=== PATIENT | female | born 1950 | race Caucasian/White ===

== ENCOUNTER 2019-10-11 12:29 | Inpatient (IN) | payer OTHER ==
[~2019-10-11] VITALS: Ht 175.3 cm; Wt 77.8 kg
[2019-10-11 13:18] LABS: Base Excess Venous -4.9 mmol/L; Bicarbonate Venous 20.3 mmol/L (24.0-30.0); PCO2 Venous 41.2 mmHg (38-42); pH Blood Venous 7.32 (7.34-7.37)
[2019-10-11] MEDS ORDERED: BUPR150ER PO (13:28)
[2019-10-11] MEDS ORDERED: NICOTINE LOZENGE2 MG MM (13:28)
[2019-10-11] MEDS ORDERED: Vitamin D2000 UNIT PO (13:29)
[2019-10-11] MEDS ORDERED: ATEN50 PO (13:30)
[2019-10-11] MEDS ORDERED: Super B With V1 EACH PO (13:30)
[2019-10-11] MEDS ORDERED: MULTI FOR HER1 EACH PO (13:30)
[2019-10-11] MEDS ORDERED: ESTR2 PO (13:30)
[2019-10-11] MEDS ORDERED: MAGNESIUM CITR100 MG PO (13:30)
[2019-10-11] MEDS ORDERED: Aspirin EC81 MG PO (13:31)
[2019-10-11 13:42] LABS: International Normalized Ratio 1.09; Prothrombin Time Results 11.6 Sec (9.7-11.5)
[2019-10-11 13:49] LABS: Albumin, Blood 1.9 g/dL (3.4-5.0); Albumin/Globulin Ratio 0.6 (0.8-1.8); Bilirubin, Total 0.5 mg/dL (0.1-1.0); Bun/Creatinine Ratio 21.2 (12.0-20.0); Calcium, Blood 8.1 mg/dL (8.5-10.1); Creatinine, Blood 2.03 mg/dL (0.40-1.00); Globulin, Blood 3.2 g/dL (2.2-4.0); Potassium, Blood 4.2 mmol/L (3.5-5.5); Total Protein, Blood 5.1 g/dL (6.4-8.2)
[2019-10-11 13:57] LABS: Source, Urine Catheter
[2019-10-11 14:28] LABS: Appearance, Urine Hazy (Clear); Bilirubin, Urine Neg (Neg); Blood, Urine 1+ (Neg); Color, Urine Yellow (P-Yellow); Glucose Qualitative, Urine Neg (Neg); Ketones, Urine 1+ (Neg); Leukocyte Esterase, Urine Neg (Neg); Nitrite, Urine Neg (Neg); Protein, Urine 3+ (Neg); Urobilinogen, Urine NORM (Normal)
[2019-10-11 14:37] LABS: BASOPHILS ABSOLUTE AUTO 0.02 K/mm3 (0.00-0.23); BASOPHILS PERCENT AUTO 0 % (0-2); EOSINOPHILS ABSOLUTE AUTO 0.01 K/mm3 (0.00-0.68); EOSINOPHILS PERCENT AUTO 0 % (0-6); Hematocrit 37.9 % (33.0-51.0); Hemoglobin 13.2 g/dL (11.5-16.0); IMMATURE GRAN ABSOLUTE AUTO 0.19 K/mm3 (0.00-0.10); IMMATURE GRAN PERCENT AUTO 1 % (0-1); LYMPHOCYTES ABSOLUTE AUTO 0.52 K/mm3 (0.84-5.20); LYMPHOCYTES PERCENT AUTO 4 % (21-46); MONOCYTES ABSOLUTE AUTO 0.97 K/mm3 (0.16-1.47); MONOCYTES PERCENT AUTO 7 % (4-13); Mean Corpuscular HGB 31.4 pg (26.0-34.0); Mean Corpuscular HGB Conc 34.8 g/dL (31.5-36.5); Mean Corpuscular Volume 90 fL (80-100); NEUTROPHILS ABSOLUTE AUTO 12.83 K/mm3 (1.96-9.15); NEUTROPHILS PERCENT AUTO 88 % (41-73); RDW Coefficient Variation 13.7 % (11.7-14.2); RDW Standard Deviation 45.4 fL (35.1-46.3); Red Blood Cell Count 4.21 M/mm3 (3.80-5.20); White Blood Cell Count 14.54 K/mm3 (4.00-11.30)
[2019-10-11 14:53] LABS: Granular Casts 0-2 /lpf (0)
[2019-10-11 14:54] LABS: Bacteria Mod /hpf; Red Blood Cells, Urine 0-2 /hpf (0-2)
[2019-10-11 14:55] LABS: Squamous Epithelial Cells Mod /hpf (Few); Transitional Epithelial Cells Few /hpf (0-Rare)
[2019-10-11 15:02] LABS: U Amphetamine Screen Not Detected; U Barbituate Screen Not Detected; U Benzodiazapine Screen Not Detected; U Buprenorphine Screen Not Detected; U Cannabinoids Screen DETECTED; U Cocaine Screen Not Detected; U Methadone Screen Not Detected; U Methamphetamine Screen Not Detected; U Opiates Screen Not Detected; U Oxycodone Screen Not Detected; U Propoxyphene Screen Not Detected
[2019-10-11 15:04] LABS: Magnesium, Blood 2.4 mg/dL (1.6-2.4)
[2019-10-11 15:08] LABS: Creatine Kinase MB 8.5 ng/mL (0.0-3.6); Creatine Kinase MB Index 1.1 (0.0-4.0); Troponin I 0.219 ng/mL (0.000-0.040)
[2019-10-11 15:40] LABS: Mean Platelet Volume 12.7 fL (9.1-12.4); Platelet Count 162 K/mm3 (150-400)
--- NOTE | 2019-10-11 16:20 | NUR ---
ADMIT NOTE- PT ADMITTED TO ICU FROM ER ON [facility]. INTUBAATED, TUBE SECURE. VENT SETTINGS AC 14 TV 450 PEEP 5 PAP 26. SUCTIONED SCANT CLEAR SECRETIONS. LUNGS COARSE RIGHT UPPER. OGT TO LIS NO DRAINAGE. UO VIA JANG 175 YELLOW URINE. BILATERAL WRIST RESTRAINTS-ATTEMPTS TO PULL ETT. EXPLAINED PLAN OF CARE. PROPOFOL GTT STARTED FOR SEDATION WITH GOOD RELIEF. PT'S AND NIECE HERE-UPDATED. PT ABLE TO FOLLOW DIRECTIONS TO MOVE EXTREMITIES. DR. SOLO AT BEDSIDE. LEVOPHED GTT AT 3.4 MCG/MIN, LR AT 150 CC/HR, CALCIUM IVPB STARTED. LABS DRAWN FROM [facility] LINE-DI.
[2019-10-11 16:32] LABS: PCO2 Arterial 31.1 mmHg (35-45); PO2 Arterial 116 mmHg (80-100); pH Blood Arterial 7.38 (7.35-7.45)
--- NOTE | 2019-10-11 16:50 | NUR ---
RUN OF WIDE COMPLEX RHYTHM, PULSES PALPABLE, BP STABLE. DR. SOLO HERE-LABS ORDERED. SINUS HENNY NOW. LEVOPHED OFF. PT SEDATE, TOLERATING VENT
[2019-10-11 17:14] LABS: Bun/Creatinine Ratio 24.6 (12.0-20.0); Creatinine, Blood 1.67 mg/dL (0.40-1.00); Magnesium, Blood 2.3 mg/dL (1.6-2.4); Phosphorus, Blood 4.8 mg/dL (2.5-4.9); Potassium, Blood 3.4 mmol/L (3.5-5.5)
[2019-10-11 17:51] LABS: Adenovirus Not Detected (NOT DETECT); Bordetella pertussis Not Detected (NOT DETECT); Chlamydophila pneumoniae Not Detected (NOT DETECT); Coronavirus 229E Not Detected (NOT DETECT); Coronavirus HKU1 Not Detected (NOT DETECT); Coronavirus NL63 Not Detected (NOT DETECT); Coronavirus OC43 Not Detected (NOT DETECT); Human Metapneumovirus Not Detected (NOT DETECT); Human Rhinovirus/Enterovirus Detected (NOT DETECT); Influenza A Not Detected (NOT DETECT); Influenza A/2009-H1 Not Detected (NOT DETECT); Influenza A/H1 Not Detected (NOT DETECT); Influenza A/H3 Not Detected (NOT DETECT); Influenza B Not Detected (NOT DETECT); Mycoplasma pneumoniae Not Detected (NOT DETECT); Parainfluenza Virus 1 Not Detected (NOT DETECT); Parainfluenza Virus 2 Not Detected (NOT DETECT); Parainfluenza Virus 3 Not Detected (NOT DETECT); Parainfluenza Virus 4 Not Detected (NOT DETECT); Respiratory Syncytial Virus Not Detected (NOT DETECT)
--- NOTE | 2019-10-11 18:34 | NUR ---
LABS CALLED TO DR. SOOL-ORDERS FOR K REPLACEMENT. RHYTHM SINUS HENNY TO SINUS RHYTHM, MULTIPLE PACS. LIGHTLY SEDATED WITH PROPOFOL AT 35 MCG/KG/MIN. HYPOTENSIVE-RESTARTED LEVOPHED AT 2 MCG/MIN WITH IMPROVEMENT.
--- NOTE | 2019-10-11 19:15 | NUR ---
ASSUME CARE: BEDSISE RECIEVED FROM [facility] OFF GOING RN. MONITOR INTACT SHOWING SINUS RHYTHM/BIGENEBY/ACC JUNCIONAL. HEART RATE 60'S-70'S. REMAINS INTUBATED SEDATED AND RESTRAINED. VENT SETTINGS AC 12, TV,400, FIO2 35%, PEEP 5, RATE 16-18/MIN SPO2 95-100% . LUNG SOUNDS CLEAR/COARSE UPPER LOBES WITH DECREASED SOUNDS IN THE BASES. ABDOMEN SOFT WITH BOWEL SOUNDS FOUR QUADS. JANG PATENT DRAINING CARLA CLOUDY URINE. 2-3+ GENEREALIZED DEPENDENT EDENA ESPECIALLY UPPER EXTREMITIES/HANDS PAS TO LOWER EXTREMITIES AND ALL EXTREMITIES ELEVATED ON PILLOWS. REMAINS IN SOFT WRIST RESTRAINTS TO PREVENT INADVERTENT REMOVAL OF LINES AND TUBES. CALL TO SPOUSE TO GAIN FURTHER INFORMATION /PAST MEDICAL HX. CONTINUE TO MONITOR AND REPORT CHANGE IN PATIENT CONDITION.
[2019-10-11 22:42] LABS: Troponin I 0.21 ng/mL (0.000-0.040)
[2019-10-11 22:49] LABS: Creatine Kinase MB 7.7 ng/mL (0.0-3.6); Creatine Kinase MB Index 1.5 (0.0-4.0)
[2019-10-12 05:02] LABS: BASOPHILS ABSOLUTE AUTO 0.05 K/mm3 (0.00-0.23); BASOPHILS PERCENT AUTO 0 % (0-2); EOSINOPHILS ABSOLUTE AUTO 0.03 K/mm3 (0.00-0.68); EOSINOPHILS PERCENT AUTO 0 % (0-6); Hematocrit 40.4 % (33.0-51.0); Hemoglobin 14.2 g/dL (11.5-16.0); IMMATURE GRAN ABSOLUTE AUTO 0.22 K/mm3 (0.00-0.10); IMMATURE GRAN PERCENT AUTO 1 % (0-1); LYMPHOCYTES ABSOLUTE AUTO 0.98 K/mm3 (0.84-5.20); LYMPHOCYTES PERCENT AUTO 5 % (21-46); MONOCYTES ABSOLUTE AUTO 1.21 K/mm3 (0.16-1.47); MONOCYTES PERCENT AUTO 7 % (4-13); Mean Corpuscular HGB 31.3 pg (26.0-34.0); Mean Corpuscular HGB Conc 35.1 g/dL (31.5-36.5); Mean Corpuscular Volume 89 fL (80-100); Mean Platelet Volume 11.7 fL (9.1-12.4); NEUTROPHILS ABSOLUTE AUTO 15.57 K/mm3 (1.96-9.15); NEUTROPHILS PERCENT AUTO 86 % (41-73); Platelet Count 247 K/mm3 (150-400); RDW Coefficient Variation 13.9 % (11.7-14.2); RDW Standard Deviation 45.2 fL (35.1-46.3); Red Blood Cell Count 4.54 M/mm3 (3.80-5.20); White Blood Cell Count 18.06 K/mm3 (4.00-11.30)
[2019-10-12 05:23] LABS: Albumin, Blood 2.1 g/dL (3.4-5.0); Albumin/Globulin Ratio 0.7 (0.8-1.8); Bilirubin, Total 0.3 mg/dL (0.1-1.0); Bun/Creatinine Ratio 27.9 (12.0-20.0); Calcium, Blood 9.1 mg/dL (8.5-10.1); Creatine Kinase MB 5.3 ng/mL (0.0-3.6); Creatine Kinase MB Index 2.2 (0.0-4.0); Creatinine, Blood 1.65 mg/dL (0.40-1.00); Magnesium, Blood 2.3 mg/dL (1.6-2.4); Phosphorus, Blood 4.2 mg/dL (2.5-4.9); Potassium, Blood 3.3 mmol/L (3.5-5.5); Total Protein, Blood 5.1 g/dL (6.4-8.2); Troponin I 0.153 ng/mL (0.000-0.040)
[2019-10-12 05:24] LABS: PO2 Arterial 71.8 mmHg (80-100); pH Blood Arterial 7.46 (7.35-7.45)
[2019-10-12 05:25] LABS: Free Thyroxine 1.11 ng/dL (0.70-1.60); Thyroid Stimulating Hormone 0.93 uIU/mL (0.360-4.800)
--- NOTE | 2019-10-12 06:14 | NUR ---
SHFIT SUMMARY REMAINS ON VENT. SETTINGS AC 12, TV 400, FIO2 25% PEEP 5, RATE 16-18/MIN SPO2 97-100% LUNG SOUNDS CLEAR UPPER LOBES WITH DECREASED COARSE BASES. SCANT AMT WHITE SECRETIONS SX WITH ORAL CARE. OG TO LIS.PATENT WITH SCANT RETURM. ABDOMEN SOFT WITH BOWEL SOUNDS FOUR QUADS. TEMP PROBE JANG PATENT DRAINING CLOUDY URINE. GENERALIZED DEPENDENT EDEMA NOTED ESPECIALLY TO EXTREMITIES. ALL EXTREMITIES ELEVATED ON PILLOWS. SEDATION OFF FOR WEAN . TOLERATED WELL COMMUNICATED WITH WRITTEN NOTES, APPROPRIATELY . REMAINS IN SOFT WRIST RESTRAINTS TO PREVENT INADVERTENT REMOVAL OF LINES TUBES. CONTINUE TO MONITOR AND REPORT CHANGE IN PATIENT CONDITION.
--- NOTE | 2019-10-12 07:27 | NUR ---
BEDSIDE REPORT TAKEN AT 0700. PT SEDATED ON PROPOFOL AT 35MCG FOR MECH VENT. LEVOPHED AT 2MCG, BP STABLE; LEVOPHED PLACED ON STANDBY.
--- NOTE | 2019-10-12 07:50 | NUR ---
PT ABLE TO FOLLOW DIRECTIONS, NODS HEAD NO TO PAIN. TEMP UP 101.1; BLANKETS REMOVED, WILL GIVE TYLENOL. PT WENT INTO SVT RATE 160'2 FOR LESS THAN 1MIN THEN CONVERTED BACK TO SINUS TO SINUS TACH 90-110.
--- NOTE | 2019-10-12 07:58 | NUR ---
DR SOLO AT BEDSIDE. POSSIBLE EXTUBATION THIS AM.
--- NOTE | 2019-10-12 08:36 | NUR ---
PT EXTUBATED AT 0830. RESTRAINTS REMOVED AT THIS TIME. PT AWAKE, ALERT, AND ORIENTED. PT'S CALLED AND UPDATED PER PT REQUEST. PT PLACED ON 2L O2 VIA N/C. SATS 97%.
--- NOTE | 2019-10-12 08:53 | NUR ---
PT EXTUBATED WITHOUT ISSUE, PT SX ORALLY AND ETT PRIOR TO EXTUBATION, SAMPLE COLLECTED AND SENT TO LAB. TUBE PULLED AT 0830 AND PT PLACED ON 2L POST EXTUBATION. NO DISTRESS NOTED AT THIS TIME WILL CONTINUE TO MONITOR.
--- NOTE | 2019-10-12 11:24 | NUR ---
PT OOB TO CHAIR, SBA. PT WEAK BUT ABLE TO BEAR WEIGHT. PT C/O ACHE/PAIN TO R HIP, R SHOULDER, R UPPER BACK, R NECK. TYLENOL GIVEN FOR TEMP 101.1 WHICH IS DOWN TO 100.8 NOW. RESP EVEN UNLABORED, SATS 97%+ ON RA. PT TOLERATED ICE WATER, ABLE TO TAKE AM MEDS.
--- NOTE | 2019-10-12 14:18 | NUR ---
PT CONVERTED FROM SINUS TACH TO AFIB RVR RATE 150-190'S. BP STABLE. PT ASYMPTOMATIC. PT FIRST ASKED TO PREFORM VALSALVA MANEUVER WHICH DECREASED HEART RATE TO 150'S FOR MAYBE 5SEC. DR SOLO CALLED. AFIB RVR APPEARED REGULAR LIKE A SVT; EKG COMPLETED WHICH SHOWED AFIB RVR. LOPRESSOR 5MG AT 2.5MG INCREMENTS ORDERED. 2.5MG GIVEN ONLY CARDIOLOGY CONSULT WAS ORDERED AND DR DIXON WAS CONSIDERING CARIOVERSION W ADENOSINE. CRASH CART AT BEDSIDE, PADS ATTATCHED. BP SLIGHTLY LOW AFTER 2.5MG OF LOPRESSOR. NEW ORDERS FROM DR DIXON TO START HEPARIN GTT, AMIO GTT FOLLOWED BY ESMOLOL GTT IF NEEDED.
--- NOTE | 2019-10-12 15:16 | NUR ---
DR. ELIAS UPDATED. PT. TO REMAIN IN ICU
--- NOTE | 2019-10-12 15:29 | NUR ---
Echocardiogram completed.
--- NOTE | 2019-10-12 17:56 | NUR ---
AMIODARONE BOLUS FOLLOWED BY GTT STARTED AT 1430. HEPARIN GTT STARTED PER PHARMACY ORDERS AT 1530 AT 15UNITS/KG/HR ALONG WITH A 6,000 IV BOLUS. ESMOLOL STARTED AT 1530 D/T PERSISTENT AFIB W RVR RATE 150-170. BP LABILE AND AT TIMES SLIGHTLY HYPOTENSIVE W MAP REMAINING >65. ESMOLOL STARTED AT 25MCG/KG/MIN. DR DIXON IN TO CHECK ON PATIENT AT 1630; ESMOLOL INCREASED TO 50MCG AT THIS TIME PER DR DIXON. PT HAS HAD C/O PAIN T/O SHIFT. ON FIRST ASSESSMENT SHE DENIED C/O PAIN, BUT SOON AFTER C/O PAIN TO RIGHT NECK, SHOULDER, HIP D/T FALL AT HOME. PT DENIES CHRONIC PAIN, YET STATES SHE TAKES NSAIDS AND CANNABIS Q NIGHT TO HELP HER SLEEP. PT ALSO HAD ANXIETY T/O SHIFT THAT APPEARED TO BE WORSE THE SHIFT PROGRESSED. PT ASKED FOR SOMETHING IV TO "JUST LET ME SLEEP THROUGH THIS". PT VERY RESTLESS IN BED AND UNABLE TO GET COMFORTABLE. PT PANICKED AT TIMES. PT GIVEN ASA, ADVIL, TYLENOL, AND FENT 25MCG X1 FOR DISCOMFORT W/O ANY IMPROVEMENT. DR SOLO CALLED AT 1645 FOR C/O PAIN AND ANXIETY. DR SOLO ALSO GIVEN FULL UPDATE. FENT AND ATIVAN IV ORDERED PRN. PT GIVEN 0.5MG ATIVAN IV AT 1652 WITH GREAT EFFECT. PT CALM BUT AWAKE AND STATED THAT HER PAIN WAS IMPROVED. PT COVERTED FROM AFIB RVR TO SINUS RHYTHM 2MINS AFTER ATIVAN GIVEN. DR SOLO AND DR DIXON NOTIFIED VIA PHONE. POST CONVERTED EKG OBTAINED PER DR CABA. ESMOLOL TITRATED OFF PER DR DIXON AT 1745. FENT 50MCG GIVEN FOR PAIN AT 1720 WITH GOOD EFFECT. PT WENT IN BRIEF ACCELERATED JUNCTIONAL RHYTHM W WIDE QRS COMPLEX AT 1757, THEN CONVERTED BACK TO SINUS.
--- NOTE | 2019-10-12 19:09 | NUR ---
Initial spiritual care note: Met with Mrs. Coleman and her spouse at bedside. Linda couple who appear to enjoy eachother. Non-holiness, but both were open to encouragement. Jasmina told me about her life, and she and spouse laugh easily at little jokes. They are hopeful Jasmina is recovering. She admits she "waited too long" before seeking medical treatment and promises not to do this again. No concerns presented. They asked that I continue to visit.
--- NOTE | 2019-10-12 20:07 | NUR ---
ASSUMED CARE AT 1900. BEDSIDE REPORT TAKEN FROM OFFGOING MARCUS BLACK. I-TRACE PERFORMED, GTT RATES AND ORDERS VERIFIED. RATES/GTTS DOCUMENTED ON FLOWSHEET. PT ALERT AND ORIENTED, BUT FORGETFUL. PT VACCILATES BETWEEN CALM AND ANXIOUS. PT ABLE TO STATE WHERE AND WHEN SHE IS, BUT ALSO STATES SHE "WAS THE FIRST WOMAN IN HISTORY TO GIVE WITHOUT ANESTHETIC". PAIN CONTROL AND MEDICATION PLAN DISCUSSED WITH PT, AND SHE IS AGREEABLE.
[2019-10-13 04:12] LABS: BASOPHILS ABSOLUTE AUTO 0.02 K/mm3 (0.00-0.23); BASOPHILS PERCENT AUTO 0 % (0-2); EOSINOPHILS ABSOLUTE AUTO 0.25 K/mm3 (0.00-0.68); EOSINOPHILS PERCENT AUTO 2 % (0-6); Hematocrit 32.7 % (33.0-51.0); Hemoglobin 11.2 g/dL (11.5-16.0); IMMATURE GRAN PERCENT AUTO 2 % (0-1); LYMPHOCYTES ABSOLUTE AUTO 0.74 K/mm3 (0.84-5.20); LYMPHOCYTES PERCENT AUTO 6 % (21-46); MONOCYTES ABSOLUTE AUTO 0.59 K/mm3 (0.16-1.47); MONOCYTES PERCENT AUTO 5 % (4-13); Mean Corpuscular HGB Conc 34.3 g/dL (31.5-36.5); Mean Corpuscular Volume 91 fL (80-100); Mean Platelet Volume 11.5 fL (9.1-12.4); NEUTROPHILS ABSOLUTE AUTO 9.79 K/mm3 (1.96-9.15); NEUTROPHILS PERCENT AUTO 84 % (41-73); Platelet Count 215 K/mm3 (150-400); RDW Coefficient Variation 14.1 % (11.7-14.2); RDW Standard Deviation 46.7 fL (35.1-46.3); Red Blood Cell Count 3.61 M/mm3 (3.80-5.20); White Blood Cell Count 11.59 K/mm3 (4.00-11.30)
[2019-10-13 04:28] LABS: Anion Gap 5 mmol/L (6-16); Blood Urea Nitrogen 23 mg/dL (8-24); Bun/Creatinine Ratio 26.1 (12.0-20.0); CO2, Blood 26 mmol/L (21-32); Calcium, Blood 8.1 mg/dL (8.5-10.1); Chloride, Blood 108 mmol/L (98-108); Creatinine, Blood 0.88 mg/dL (0.40-1.00); Glomerular Filtration Rate >60 (60-); Glucose, Blood 99 mg/dL (70-99); Phosphorus, Blood 1.6 mg/dL (2.5-4.9); Potassium, Blood 2.8 mmol/L (3.5-5.5); Sodium, Blood 139 mmol/L (136-145)
--- NOTE | 2019-10-13 05:24 | NUR ---
PT WAS RESTLESS MOST OF THE NIGHT, WITH PAIN AND ANXIETY. FENTANYL GIVEN TO GOOD EFFECT, ATIVAN GIVEN WHEN FENTANYL WORE OFF. PT NOW SLEEPING SOUNDLY, AROUSABLE TO TOUCH. PT STATES HAPPY TO FINALLY GET SOME SLEEP. PT HAS NOT HAD BOWEL MOVEMENT, BUT IS PASSING FLATUS WHILE ON BEDPAN. PT HEART RHYTHM WAS VARIABLE WHILE AWAKE, WITH SHORT RUNS OF IRREGULAR, JUNCTIONAL, AND VTAC. WENT TO [facility] ONCE SHE FELL ASLEEP.
--- NOTE | 2019-10-13 07:47 | NUR ---
BEDSIDE REPORT TAKEN AT 0700. PT SLEEPING IN BED, AROUSES TO VOICE. HEPARIN GTT AT 13UNITS/KG/HR. AMIO GTT AT 0.5MG/MIN, LR AT 150CC/HR.
--- NOTE | 2019-10-13 10:37 | NUR ---
DR DIXON AND DR SOLO AT BEDSIDE THIS AM TO SEE PT. PT GIVEN PO AMIODARONE WITH ORDERS TO DC GTT ONE HOUR AFTER PO AMIO GIVEN. HEPARIN GTT WILL CONT UNTIL 1700 AND WILL BE REPLACED BY XARELTO. HEPARIN INCREASED TO 14UNITS PER PHARMACY AT 1023. JANG CATH DC'D W/O DIFFICULTY AT 1023. CENTRAL LINE TO BE DC'D AFTER PERIPHERAL IV STARTED. PT UP TO COMMODE, NO BM, BUT PT PASSED A LOT OF FLATUS; PT STATES SHE FEELS BETTER.
--- NOTE | 2019-10-13 12:49 | NUR ---
CENTRAL LINE DC'D PER POLICY AND PROTOCOL AFTER 2 PERIPHERAL IV'S PLACED. JANG DC'D W/O DIFF. PT SBA W GAIT BELT TO COMMODE, CLEAR URINE OUTPUT. OOB TO CHAIR FOR LUNCH. REPORT GIVEN TO JAIV BLACK ON 3RD FLOOR.
--- NOTE | 2019-10-13 14:43 | NUR ---
[facility], a+o, transfered with two person assist, came down with no IV pump, started heparin josesito, all three iv sites flushed but one on the R ac acluded easily, started other iv medications as ports came available, pt stated she was cold so provided 3 warm blankets and turned up temp in room and closed door, bp high, gave schduled bp medication, waited 30 min bp more within acceptable range, less cold but still mind wandering still aware of where she is at and if asked why but not so sure it is a good idea she stay dispite the fact she has no way of going home or anyone there capable of caring for her, family in to visit, call light in reach, alarm on bed due to desire to leave, bed in low position, medications infusing. will continue to monitor and treat until share bsr with shift engineer
--- NOTE | 2019-10-13 18:39 | NUR ---
alert but confused, states she was showing signs of confusion prior to hospitalization, he states he feels she is unsafe to retun to their current living situation (motor home), trouble with iv's all 3 started in icu infiltrated and difficult start required multiple attempts by highly skilled nurses, currently infusing with no s/sx of infiltration or infection, heparin dc at 1700, xerolto started po. used bsc 2 times, 2 person with gatebelt to transfer due to need to assist and move cables/hoses around, believes she can do it herself, call light in reach, ls clear, declined all meals but complaind she was hungary but did not want anything from the kitchen only wanted to go home and make her own, currently resting quietly with 50mg of fentenyl on board, enjoyed visit with dog, still no bm, denied any urge or abdmn pain, will continue to monitor and treat until share bsr with the wonderful and talent alena rn
--- NOTE | 2019-10-14 05:20 | NUR ---
AOC OPERATIONS INTELLIGENCE OFFICER SUMMARY NO ACUTE CHANGES THIS SHIFT. PT AAOX2-3, HAS MOMENTS OF CLARITY BUT IS OFTEN CONFUSED AND FORGETFUL. REQUIRES REORIENTATION OFTEN. PT UP TO THE BSC TO VOID NUMEROUS TIMES TONIGHT AFTER SUHAIL WAS DC'D DURING DAY SHIFT. CONTINUED ON LR'S AT 150 ML/HR. PT VERY EAGER TO GO HOME TO SEE HER AND DOG. BED ALARM ON FOR SAFETY DUE TO PT'S IMPULSIVENESS. PT DOES NOT CALL FOR ASSISTANCE BEFORE ATTEMPTING TO GET UP. WILL CONTINUE TO MONITOR.
[2019-10-14 05:39] LABS: BASOPHILS ABSOLUTE AUTO 0.03 K/mm3 (0.00-0.23); BASOPHILS PERCENT AUTO 0 % (0-2); EOSINOPHILS ABSOLUTE AUTO 0.14 K/mm3 (0.00-0.68); EOSINOPHILS PERCENT AUTO 1 % (0-6); Hematocrit 33.3 % (33.0-51.0); Hemoglobin 11.5 g/dL (11.5-16.0); IMMATURE GRAN ABSOLUTE AUTO 0.27 K/mm3 (0.00-0.10); IMMATURE GRAN PERCENT AUTO 2 % (0-1); LYMPHOCYTES ABSOLUTE AUTO 0.88 K/mm3 (0.84-5.20); LYMPHOCYTES PERCENT AUTO 7 % (21-46); MONOCYTES PERCENT AUTO 6 % (4-13); Mean Corpuscular HGB 31.1 pg (26.0-34.0); Mean Corpuscular HGB Conc 34.5 g/dL (31.5-36.5); Mean Corpuscular Volume 90 fL (80-100); Mean Platelet Volume 11.4 fL (9.1-12.4); NEUTROPHILS ABSOLUTE AUTO 9.98 K/mm3 (1.96-9.15); NEUTROPHILS PERCENT AUTO 83 % (41-73); Platelet Count 269 K/mm3 (150-400); RDW Standard Deviation 46.3 fL (35.1-46.3)
[2019-10-14 06:07] LABS: Alanine Aminotransfer (ALT/SGP 64 U/L (12-78); Albumin, Blood 2.1 g/dL (3.4-5.0); Albumin/Globulin Ratio 0.7 (0.8-1.8); Alk Phos 50 U/L (50-136); Anion Gap 9 mmol/L (6-16); Aspartate Aminotrans (AST/SGOT 54 U/L (12-37); Bilirubin, Total 0.4 mg/dL (0.1-1.0); Blood Urea Nitrogen 8 mg/dL (8-24); Bun/Creatinine Ratio 12.7 (12.0-20.0); CO2, Blood 25 mmol/L (21-32); Calcium, Blood 8.4 mg/dL (8.5-10.1); Chloride, Blood 105 mmol/L (98-108); Creatinine, Blood 0.63 mg/dL (0.40-1.00); Globulin, Blood 3.1 g/dL (2.2-4.0); Glomerular Filtration Rate >60 (60-); Glucose, Blood 92 mg/dL (70-99); Magnesium, Blood 1.9 mg/dL (1.6-2.4); Phosphorus, Blood 1.6 mg/dL (2.5-4.9); Potassium, Blood 2.7 mmol/L (3.5-5.5); Sodium, Blood 139 mmol/L (136-145); Total Protein, Blood 5.2 g/dL (6.4-8.2)
--- NOTE | 2019-10-14 09:12 | NUR ---
A+O, MORE WITHIT THAN YESTERDAY, TOOK MEDICATION WELL, REFUSED ADELE PATCH, 4 DAYS SINCE SMOKED, CALL LIGHT IN REACH, REMOVED DRESSING TO NECK SKIN LOOKES GOOD, IV STILL PROFUSING WELL INTO L AC 20G, SOFT NONTENDER BT+4Q, WEAK ALL FOUR LIMBS STRONG PULSE, GOOD PROFUSION, GETTING TIRED ASSESSMENT PROCEEDS, ADJUSTED BED TO SPECIFICATIONS, PERRL, WILL CONTINUE TO MONITOR AND TREAT APPROPRIATE, NSR AT 71 PER PMT
[2019-10-14] MEDS ORDERED: METO25 PO (16:33)
[2019-10-14] MEDS ORDERED: ACET325 PO (16:34)
[2019-10-14] MEDS ORDERED: ALBU90OI INH (16:36)
[2019-10-14] MEDS ORDERED: Amiodarone HCl200 MG PO (16:36)
[2019-10-14] MEDS ORDERED: Aspir 8181 MG PO (16:37)
[2019-10-14] MEDS ORDERED: AZITHROMYCIN500 M1 PO (16:39)
[2019-10-14] MEDS ORDERED: BISA10S PR (16:41)
[2019-10-14] MEDS ORDERED: BUPR150ER PO (16:42)
[2019-10-14] MEDS ORDERED: CEFD300 PO (16:43)
[2019-10-14] MEDS ORDERED: LORA.5 PO (16:44)
[2019-10-14] MEDS ORDERED: NICO21TP TOP (16:45)
[2019-10-14] MEDS ORDERED: ONDA4ODT MM (16:46)
[2019-10-14] MEDS ORDERED: PANT20 PO (16:47)
[2019-10-14] MEDS ORDERED: XARELTO20 M1 PO (16:49)
[2019-10-14] MEDS ORDERED: Florastor250 MG PO (16:50)
== END 2019-10-14 17:56 | disposition home health service (06) | DRG 871 ==
LOC: ER 12:29 → ICUW 15:04 → MEDS 10-13 13:14
PROVIDERS: Emergency Medicine; Internal Medicine Critical Care Medicine; ADMIT Family Medicine
PROC: 0BH17EZ Insertion of Endotracheal Airway into Trachea, Via Natural or Artificial Opening (ICD-10-PCS; principal; 2019-10-11)
PROC: 5A2204Z Restoration of Cardiac Rhythm, Single (ICD-10-PCS; 2019-10-11)
PROC: 05HM33Z Insertion of Infusion Device into Right Internal Jugular Vein, Percutaneous Approach (ICD-10-PCS; 2019-10-11)
PROC: 5A1935Z Respiratory Ventilation, Less than 24 Consecutive Hours (ICD-10-PCS; 2019-10-11)
DX: A41.9 Sepsis, unspecified organism (principal); R65.21 Severe sepsis with septic shock; G93.41 Metabolic encephalopathy; J18.9 Pneumonia, unspecified organism; J96.01 Acute respiratory failure with hypoxia; N17.9 Acute kidney failure, unspecified; I12.9 Hypertensive chronic kidney disease with stage 1 through stage 4 chronic kidney disease, or unspecified chronic kidney disease; N18.3 Chronic kidney disease, stage 3 (moderate); I48.0 Paroxysmal atrial fibrillation; F12.10 Cannabis abuse, uncomplicated; F17.210 Nicotine dependence, cigarettes, uncomplicated
CPT/HCPCS: 0099U; 31500; 31720; 36415; 36556; 36600; 51702; 70450; 71045; 80048; 80053; 81001; 82330; 82550; 82553; 82803; 83605; 83735; 84100; 84145; 84439; 84443; 84484; 85025; 85610; 85730; 87040; 87070; 87086; 87205; 92960; 93005; 93010; 93306; 94002; 94003; 94640; 94761; 96361-59; 96365-59; 96366-59; 96368; 96375-59; 97110; 97161; 99291-25; 99292; A9270; A9270-GY; C1751; C9113; J0153; J0282; J0330; J0456; J0696; J1644; J1650; J2060; J2250; J2704; J3010; J3480; J7030; J7050; J7060; J7120

== ENCOUNTER → 2021-11-18 | Outpatient (CLI) | payer OTHER ==
[~2021-11-18] MED LIST: ACET325 PO; ALBU90OI INH; ATEN50 PO; AZITHROMYCIN500 M1 PO; Amiodarone HCl200 MG PO; Aspir 8181 MG PO; Aspirin EC81 MG PO; BISA10S PR; BUPR150ER PO; CEFD300 PO; ESTR2 PO; Florastor250 MG PO; LORA.5 PO; MAGNESIUM CITR100 MG PO; METO25 PO; MULTI FOR HER1 EACH PO; NICO21TP TOP; NICOTINE LOZENGE2 MG MM; ONDA4ODT MM; PANT20 PO; Super B With V1 EACH PO; Vitamin D2000 UNIT PO; XARELTO20 M1 PO
== END ==
LOC: LAB SHORT 07:48 → LAB 07:48 → PLD 07:48
DX: B35.1 Tinea unguium (principal); B35.3 Tinea pedis; L60.2 Onychogryphosis
CPT/HCPCS: 88305; 88312

== ENCOUNTER 2022-10-08 16:50 | Inpatient (IN) | payer OTHER ==
[~2022-10-08] VITALS: Ht 177.8 cm; Wt 74.8 kg
[2022-10-08 17:47] LABS: BASOPHILS ABSOLUTE AUTO 0.05 K/mm3 (0.00-0.23); BASOPHILS PERCENT AUTO 0 % (0-2); EOSINOPHILS ABSOLUTE AUTO 0.09 K/mm3 (0.00-0.68); EOSINOPHILS PERCENT AUTO 1 % (0-6); Hematocrit 46.3 % (33.0-51.0); Hemoglobin 15.9 g/dL (11.5-16.0); IMMATURE GRAN ABSOLUTE AUTO 0.09 K/mm3 (0.00-0.10); IMMATURE GRAN PERCENT AUTO 1 % (0-1); LYMPHOCYTES ABSOLUTE AUTO 1.03 K/mm3 (0.84-5.20); LYMPHOCYTES PERCENT AUTO 8 % (21-46); MONOCYTES ABSOLUTE AUTO 0.68 K/mm3 (0.16-1.47); MONOCYTES PERCENT AUTO 5 % (4-13); Mean Corpuscular HGB 31.1 pg (26.0-34.0); Mean Corpuscular HGB Conc 34.3 g/dL (31.5-36.5); Mean Corpuscular Volume 90 fL (80-100); Mean Platelet Volume 11.1 fL (9.1-12.4); NEUTROPHILS ABSOLUTE AUTO 10.83 K/mm3 (1.96-9.15); NEUTROPHILS PERCENT AUTO 85 % (41-73); Platelet Count 329 K/mm3 (150-400); RDW Standard Deviation 43.4 fL (35.1-46.3); Red Blood Cell Count 5.12 M/mm3 (3.80-5.20); White Blood Cell Count 12.77 K/mm3 (4.00-11.30)
[2022-10-08 18:14] LABS: Albumin, Blood 3.6 g/dL (3.4-5.0); Bilirubin, Total 0.6 mg/dL (0.1-1.0); Bun/Creatinine Ratio 20.2 (12.0-20.0); Calcium, Blood 9.3 mg/dL (8.5-10.1); Creatinine, Blood 1.09 mg/dL (0.40-1.00); Globulin, Blood 3.6 g/dL (2.2-4.0); Potassium, Blood 3.3 mmol/L (3.5-5.5); Total Protein, Blood 7.2 g/dL (6.4-8.2)
[2022-10-08 18:14] LABS: Influenza A, PCR NEGATIVE (NEGATIVE); Influenza B, PCR NEGATIVE (NEGATIVE); Resp Syncytial Virus, PCR NEGATIVE (NEGATIVE); SARS-Cov-2 (COVID-19) PCR, MMC NEGATIVE (NEGATIVE)
[2022-10-08 22:42] LABS: Source, Urine Straight Cath
[2022-10-08 22:59] LABS: Appearance, Urine Clear (Clear); Bilirubin, Urine Neg (Neg); Blood, Urine 2+ (Neg); Glucose Qualitative, Urine Neg (Neg); Ketones, Urine 1+ (Neg); Leukocyte Esterase, Urine Neg (Neg); Nitrite, Urine Neg (Neg); Protein, Urine 1+ (Neg); Urobilinogen, Urine NORM (Normal)
[2022-10-08 23:30] LABS: Color, Urine Pale Yellow (P-Yellow)
[2022-10-08 23:33] LABS: Bacteria Rare /hpf; Hyaline Casts 0-2 /lpf (0-2); Red Blood Cells, Urine 0-2 /hpf (0-2); Squamous Epithelial Cells Few /hpf (Few); White Blood Cells, Urine 0-2 /hpf (0-5)
--- NOTE | 2022-10-09 03:05 | NUR ---
ADMIT NOTE 71 YR OLD FEMALE ADMITTED TO FLOOR FROM THE ED WITH DX OF TOXIC METABOLIC ENCEPH. HX DEMENTIA AND HTN. ASSISTED FROM GURNEY TO BATHROOM AND TO BED. ORIENTED TO USE OF CALL LIGHT. CALL LIGHT IN REACH.
--- NOTE | 2022-10-09 04:10 | NUR ---
TELEPHONE CLERK TELEGRAPH OFFICE SUMMARY ADMITTED EARLIER IN THE SHIFT WITH TOXIC METABOLIC ENCEPH. ORIENTED TO SELF. SKIN DRY AND FLAKY. UNSTEADY ON FEET. BED ALARM ON, AND PLACED ON CAMERA FOR SAFETY. HX HTN AND DEMENTIA. BP ELEVATED OTHERWISE VSS. REFUSED FLU SHOT. CALL LIGHT IN REACH. WILL CONTINUE TO MONITOR
[2022-10-09 06:57] LABS: BASOPHILS ABSOLUTE AUTO 0.07 K/mm3 (0.00-0.23); BASOPHILS PERCENT AUTO 1 % (0-2); EOSINOPHILS ABSOLUTE AUTO 0.18 K/mm3 (0.00-0.68); EOSINOPHILS PERCENT AUTO 2 % (0-6); Hematocrit 39.9 % (33.0-51.0); Hemoglobin 13.9 g/dL (11.5-16.0); IMMATURE GRAN ABSOLUTE AUTO 0.07 K/mm3 (0.00-0.10); IMMATURE GRAN PERCENT AUTO 1 % (0-1); LYMPHOCYTES ABSOLUTE AUTO 1.62 K/mm3 (0.84-5.20); LYMPHOCYTES PERCENT AUTO 13 % (21-46); MONOCYTES ABSOLUTE AUTO 1.21 K/mm3 (0.16-1.47); MONOCYTES PERCENT AUTO 10 % (4-13); Mean Corpuscular HGB 31.1 pg (26.0-34.0); Mean Corpuscular HGB Conc 34.8 g/dL (31.5-36.5); Mean Corpuscular Volume 89 fL (80-100); Mean Platelet Volume 11.5 fL (9.1-12.4); NEUTROPHILS ABSOLUTE AUTO 9.18 K/mm3 (1.96-9.15); NEUTROPHILS PERCENT AUTO 74 % (41-73); Platelet Count 291 K/mm3 (150-400); RDW Coefficient Variation 12.7 % (11.7-14.2); RDW Standard Deviation 41.8 fL (35.1-46.3); Red Blood Cell Count 4.47 M/mm3 (3.80-5.20); White Blood Cell Count 12.33 K/mm3 (4.00-11.30)
[2022-10-09 10:42] LABS: Albumin, Blood 3.4 g/dL (3.4-5.0); Bilirubin, Total 0.4 mg/dL (0.1-1.0); Bun/Creatinine Ratio 19.8 (12.0-20.0); Calcium, Blood 9.2 mg/dL (8.5-10.1); Creatinine, Blood 0.86 mg/dL (0.40-1.00); Globulin, Blood 3.4 g/dL (2.2-4.0); Potassium, Blood 3.4 mmol/L (3.5-5.5); Total Protein, Blood 6.8 g/dL (6.4-8.2)
--- NOTE | 2022-10-09 17:19 | NUR ---
SHIFT SUMMARY: PATIENT ALERT AND ORIENTED TO SELF, PLACE AND PERSON. DISORIENTED TO DAY, DATE, MONTH AND YEAR. ANXIOUS, PLEASANTLY CONFUSED AND EASILY REDIRECTABLE. PATIENT REPORT THAT SHE IS A LONG TIME SMOKER AND WOULD LIKE TO SMOKE A CIGARITTE. PROVIDE REORIENTATION, EDUCATE PATIENT REGARDING SMOKING CESSATION AND OFFERED NICOTINE PATCH, BUT PATIENT DECLINE. PATIENT STATED, "HONEY I LOVE MY CIGARETTE AND IT'S OKAY I DON'T NEED IT RIGHT NOW." PATIENT AMBULATES TO BATHROOM c SBA. PATIENT SPOUSE (VIRGEN) CALLED THIS AM AND ASK FOR UPDATE REGARDING PATIENT CONDITION. UPDATE WAS GIVEN TO SPOUSE. PER SPOUSE HE IS NOT ABLE TO TAKE CARE OF PATIENT AND REQUESTED NOT TO SEND HER BACK TO THE TRAILER OF WERE THE PATIENT AND SPOUSE LIVE. PER SPOUSE THE TRAILER IS VERY SMALL AND TIGHT SPACE. REASSURE SPOUSE THAT THIS RN WILL COMMUNICATE TO THE REST OF HEALTHCARE TEAM WORKING c THE PATIENT REGARDING HIS CONCERN. VITAL SIGNS REVIEWED. DENIES CP/PRESSURE, SOB AND GENERALIZED PAIN. PATIENT SITTING UP IN CHAIR IN HALLWAY AT THIS TIME.
--- NOTE | 2022-10-10 03:41 | NUR ---
PULP BLEACHER SUMMARY SOME AGITATION, PACING FLOOR AND WANDERING - TRYING TO ENTER OTHER PT ROOMS AT . REDIRECTED MULTIPLE TIMES. NOTIFIED AND IM ZYPREXA 3 MG ADMIN. ASSISTED TO HER ROOM AND PLACED IN BED WITH 3 RAILS UP. INTERMITTENT SLEEPING OBSERVED. ON CAMERA AND BED ALARM ON FOR SAFETY. CALL LIGHT IN REACH. VSS. WILL CONTINUE TO MONITOR
[2022-10-10 08:25] LABS: BASOPHILS ABSOLUTE AUTO 0.07 K/mm3 (0.00-0.23); BASOPHILS PERCENT AUTO 1 % (0-2); EOSINOPHILS ABSOLUTE AUTO 0.26 K/mm3 (0.00-0.68); EOSINOPHILS PERCENT AUTO 2 % (0-6); Hematocrit 44.1 % (33.0-51.0); Hemoglobin 14.9 g/dL (11.5-16.0); IMMATURE GRAN ABSOLUTE AUTO 0.05 K/mm3 (0.00-0.10); IMMATURE GRAN PERCENT AUTO 0 % (0-1); LYMPHOCYTES ABSOLUTE AUTO 1.58 K/mm3 (0.84-5.20); LYMPHOCYTES PERCENT AUTO 13 % (21-46); MONOCYTES PERCENT AUTO 8 % (4-13); Mean Corpuscular HGB 30.3 pg (26.0-34.0); Mean Corpuscular HGB Conc 33.8 g/dL (31.5-36.5); Mean Corpuscular Volume 90 fL (80-100); Mean Platelet Volume 11.3 fL (9.1-12.4); NEUTROPHILS ABSOLUTE AUTO 8.96 K/mm3 (1.96-9.15); NEUTROPHILS PERCENT AUTO 75 % (41-73); Platelet Count 331 K/mm3 (150-400); RDW Coefficient Variation 13.1 % (11.7-14.2); RDW Standard Deviation 43.2 fL (35.1-46.3); Red Blood Cell Count 4.91 M/mm3 (3.80-5.20); White Blood Cell Count 11.92 K/mm3 (4.00-11.30)
[2022-10-10 09:14] LABS: Albumin, Blood 3.5 g/dL (3.4-5.0); Anion Gap 5 mmol/L (6-16); Blood Urea Nitrogen 16 mg/dL (8-24); Bun/Creatinine Ratio 20.9 (12.0-20.0); CO2, Blood 25 mmol/L (21-32); Calcium, Blood 9.2 mg/dL (8.5-10.1); Chloride, Blood 111 mmol/L (98-108); Creatinine, Blood 0.77 mg/dL (0.40-1.00); Glomerular Filtration Rate 82 (60-); Glucose, Blood 135 mg/dL (70-99); Phosphorus, Blood 2.7 mg/dL (2.5-4.9); Potassium, Blood 3.8 mmol/L (3.5-5.5); Sodium, Blood 141 mmol/L (136-145)
[2022-10-10] MEDS ORDERED: ATEN100 PO (16:30)
[2022-10-10] MEDS ORDERED: Prinivil10 MG PO (16:30)
--- NOTE | 2022-10-10 16:33 | NUR ---
SHIFT SUMMARY: NO NEW CHANGES THIS SHIFT. PATIENT A&OX2-3. CALM, PLEASANT AND COOPERATIVE c CARE. PATIENT WORK c PT/OT MOBILITY THIS AM AND TOLERATED WELL. PATIENT HAS BEEN SITTING UP IN CHAIR IN THE HALLWAY BY THE WINDOW FOR THE MOST PART OF THE DAY. HOME MEDRIC WAS UPDATED TODAY. HEAD MRI c CONTRAST WAS DONE TODAY, AWAITING FOR RESULT. PATIENT CONTINENT OF URINE AND STOOL. AMBULATES TO BATHROOM c SBA USING GAITBELT. IV TO R HAND SALINE LOCKED. VITAL SIGNS REVIEWED. PATIENT BACK IN ROOM AT THIS TIME SITTING UP IN THE RECLINER CHAIR. CHAIR ALARM ON FOR SAFETY. CALL LIGHT IN REACH.
--- NOTE | 2022-10-11 04:57 | NUR ---
SHIFT SUMMARY ADMITTED FOR TOXIC METABOLIC ENCEPHALOPATHY. FULL CODE. PLAN IS FOR PLACEMENT. SHE IS IMPULSIVE. BED ALARM ACTIVE. ADA DIET. STANDBY ASSIST W/GB - BRP. ON RA. DRY SKIN ON BUE AND BLE, DRY RASH ON FOREHEAD. NO NEW CONCERNS THIS SHIFT
--- NOTE | 2022-10-11 16:19 | NUR ---
SHIFT SUMMARY PATIENT IS ALERT AND ORIENTED TO SELF AND SITUATION. PLAN FOR PATIENT IS PLACEMENT. PATIENT HAS NOT BEEN IMPULSIVE FOR ME TODAY. BED ALARM IS ON FOR SAFETY. VITAL SIGNS REVIEWED. PATIENT HAS NOT COMPLAINED OF PAIN, NAUSEA, SOB OR VOMITTING THIS SHIFT. BED IN LOCKED AND LOWEST POSITION. CALL LIGHT IN PLACE. WILL MONITOR UNTIL SHIFT CHANGE.
--- NOTE | 2022-10-12 05:34 | NUR ---
SHIFT SUMMARY PT A&O TO SELF AND FAMILY- PT HAS INCRESED CONFUSION AT TIMES AND IS AWARE OF THE CONFUSION- PT TOOK TYLENOL FOR BODY ACHES= PT UP IN HALLWAY SITTING TALKING WITH STAFF- PT IS ON CAMERA MONITORING AND BED ALARM IN PLACE- PT IMPULSIVE/FORGETFUL TO CALL FOS ASSISTANCE
--- NOTE | 2022-10-12 16:31 | NUR ---
SHIFT SUMMARY PATIENT IS ALERT AND ORIENTED TO SELF. PATIENT HAS BEEN CONFUSED BUT PLEASENT AND COOPERATIVE WITH CARE. PATIENT HAS HAD NO ACUTE EVENTS THIS SHIFT. VITAL SIGNS REVIEWED. PATIENT PULLED OUT IV AND DR ORDERED "NO IV ACCESS ORDER". PATIENT HAS BEEN IMPULSIVE AT TIMES. PATIENT HAS RESTED MOST OF SHIFT. PATIENT HAS NOT COMPLAINED OF PAIN, NAUSEA, SOB OR VOMITTING. BED IN LOCKED AND LOWEST POSITION. CALL LIGHT IN PLACE.
--- NOTE | 2022-10-13 04:59 | NUR ---
SHIFT SUMMARY PT SITTING UP IN BED WATCHING TV DURING BEDSIDE ROUNDS- PT STATED THAT SHE IS AWARE OF BEING FORGETFUL AND FEELS CONFUSED AT TIMES- PT REQUESTED TYLENOL FOR BACK PAIN- PT REPORTS THE PAIN FEELS LIKE SHE SLEPT IN THE WRONG POSITION TODAY- CALLS FROM THE CAMERA MONITOR AND BED ALARM ACTIVATED RE: PT GETTING OUT OF BED TO USE BATHROOM- PT STEADY ON FEET- PT REQUESTED TO HAVE ALARM REMOVED AND BE INDEPENDENT IN ROOM- NOTIFIED PT THAT SHE FEEL AT HOME AND SHE NEEDS TO CONTINUE TO HAVE THE ALARM IN PLACE, PT STATED UNDERSTANDING
--- NOTE | 2022-10-13 17:18 | NUR ---
NO ACUTE CHANGES THIS SHIFT. PATIENT UP WITH SBA TO RESTROOM. CONTINENT OF BOWEL/BLADDER. TOLERATING ADA DIET. WORKED WITH PT TODAY. PLEASANT AND COOPERATIVE WITH CARE. FALL PRECAUTIONS IN PLACE, PATIENT FORGETS TO USE CALL LIGHT FOR ASSISTANCE. DENIES ANY PAIN OR DISCOMFORT. NO NEW CONCERNS.
--- NOTE | 2022-10-14 16:23 | NUR ---
SHIFT SUMMARY PT A&OX1-2 AND PLEASANT. NO ACUTE CHANGES. NO C/O PAIN. PT AMBULATED IN GOMEZ TWICE AND SAT IN GOMEZ CHAIR FOR SOME TIME CHATTING WITH STAFF. VSS. BED ALARM ON. BED IN LOWEST POSITION AND CALL LIGHT IN REACH.
--- NOTE | 2022-10-15 03:27 | NUR ---
SHIFT SUMMARY NOC PT A/O TO SELF. NO ACUTE CHANGES TO REPORT. PT PLEASANT AND COOPERATIVE WITH CARE. PT SPENT MAJORITY OF SHIFT WALKING UP AND DOWN HALLWAY CONVERSING WITH STAFF. PT KEPT SEARCHING FOR WHO SHE REPORTS HAS BEEN MISSING. PT REASSURED THIS WAS NOT THE CASE. PT CAN BE HIGHLY CONFUSED AT TIMES BUT IS EASILY REDIRECTABLE. PT IS CURRENTLY RESTING WITH BED IN LOWEST POSITION, AND CALL LIGHT WITHIN REACH. TM.
--- NOTE | 2022-10-15 17:02 | NUR ---
SHIFT SUMMARY PT A&OX1 AND COOPERATIVE OF CARE. PT MORE IRRITABLE TODAY STATING SHE WANTED TO RELAX TODAY. PT SLEPT FOR A FEW HOURS IN THE MORNING. PT DID NOT WAKE UP FOR LUNCH. SNACKS PROVIDED WHEN SHE WOKE. PT AMBULATED IN GOMEZ AND CHATED WITH STAFF. VSS. BED IN LOWEST POSITION AND CALL LIGHT IN REACH.
--- NOTE | 2022-10-16 03:52 | NUR ---
SHIFT UNREMARKABLE. PT AMBULATES WELL AND INDEPENDENTLY. AOX1-2 BUT PLEASANT AND COOPERATIVE WITH CARE. CALLS APPROPRIATELY AND MAKES NEEDS KNOWN. CALL LIGHT LEFT WITHIN REACH.
--- NOTE | 2022-10-16 09:38 | NUR ---
NURSE NOTE THIS RN HAS REVIEWED AND AGREED WITH THE NURSING STUDENTS SHIFT ASSESSMENT.
--- NOTE | 2022-10-16 16:20 | NUR ---
STUDENT SHIFT SUMMARY PATIENT HAS BEEN PLEASANTLY CONFUSED MOST OF THE DAY. PATIENT IS NOW GETTING MORE SAD AND CONCERNED THAT SHE HAS NOT SEEN HER THIS EVENING. PATIENT OREIENTED TO PERSON AND PLACE ONLY. PATIENT IS COMPLIANT WITH VERBAL REQUESTS. AMBULATING IN ROOM FREQUENTLY AND IN HALLWAY. PATIENT LIKES TO SIT IN HALLWAY AND OBSERVE.
--- NOTE | 2022-10-16 16:52 | NUR ---
NURSE NOTE THIS RN AGREES WITH SHIFT ASSESSMENT AND NURSING SHIFT NOTE BY STUDENT.
--- NOTE | 2022-10-17 04:29 | NUR ---
SHIFT UNREMARKABLE. PT HAS BEEN ABLE TO SLEEP THROUGH MOST OF SHIFT. WILL OCCASIONALLY WAKE UP CONFUSED AND WANDER INTO GOMEZ. EASILY REDIRECTABLE. PLEASANTLY CONFUSED. CALL LIGHT LEFT WITHIN REACH.
--- NOTE | 2022-10-17 19:57 | NUR ---
SHIFT SUMMARY: PT A/O X 2, IND IN ROOM. PT WAS VERY PLEASANT AND COOPERATIVE THROUGHOUT THE DAY. VERY STABLE ON FEET AND CONTINENT OF URINE AND BOWEL. PT EATING AND DRINKING FLUIDS WELL. PT DID REPORT SEEING A MAN IN HER ROOM AND TALKED ABOUT WOMEN IN HER ROOM WHICH WERE NOT PRESENT. PT WAS NOT DISTURBED BY HALLUCINATIONS.
--- NOTE | 2022-10-18 17:05 | NUR ---
Shift Summary A/O to self and hospital. Admits to being forgetful and fearful d/t being uncertain of what is and is not reality. States knows she was but unsure if she is now or . Does say she recalls having two sons of which one a long time ago but not sure what happened to the one living. Somewhat distress when discussing family and memory impairment. Poor short term memory. Up ad shyann, independent in room and to bathroom. Good appetite. Pleasant/cooperative.
--- NOTE | 2022-10-19 17:53 | NUR ---
Shift Summary Uneventful day. No acute changes. Denies pain.
--- NOTE | 2022-10-20 05:54 | NUR ---
AOX1, PLEASANT, AMBULATES INDEPENDENTLY IN HALLS, TOLERATES PO PILLS, THIN LIQUIDS. VERY LITTLE SLEEP THIS SHIFT. DOES NOT USE CALL LIGHT BUT MAKES NEEDS KNOWN. CONTINENT OF BOWEL AND BLADDER. NO SIGNIFICANT CHANGES FROM REPORT.
--- NOTE | 2022-10-20 12:25 | NUR ---
PER DISCHARGE, CARE CHEMICAL ANALYST STATES FAMILY CONTESTING D/CHG. WILL NOT GO HOME TODAY
--- NOTE | 2022-10-20 17:33 | NUR ---
PT PLEASANT COOP TODAY. AMBULATING IN HALLS T/O DAY. NO NEW CONCERNS NOTED. DENIES PAIN. STATES THINKS HAD B/M IN LAST DAY OR SO, BUT NOT SURE. REQUESTED SHE TELL US IMMEDIATELY WHEN SHE HAS NEXT B/M. BT X4. ABD SOFT NONTENDER. TOOK SHOWER TODAY. NO NEW CONCERNS NOTED. PLANNING D/C. YANCI IS CONTESTING. BED IN LOW POSITION, CALL LITE IN REACH, WALKS TO GOMEZ FOR NEEDS
--- NOTE | 2022-10-21 03:58 | NUR ---
DUMP OPERATOR SUMMARY BP ELEVATED, OTHERWISE VSS. AFFECT ATTENTIVE TO STAFF BUT VERBAL RESPONSE SOMEWHAT CONFUSED. HAS BEEN RESTING QUIETLY MUCH OF THE NIGHT WITH AN OCCASIONAL EPISODE OF WANDERING OUT INTO THE HALLWAY LOOKING FOR THE BATHROOM. EASILY REDIRECTED. CURRENTLY RESTING QUIETLY IN BED. CALL LIGHT IN REACH. WILL CONTINUE TO MONITOR
--- NOTE | 2022-10-21 17:01 | NUR ---
PT IS AOX3 WITH CONFUSION. SHE IS INDEPENDENT AND COOPERATIVE OF CARE. PT WAS VERY TIRED TODAY AND RESTED A GOOD PORTION OF THE FIRST PART OF SHIFT. PT HAS AMBULATED OUT INTO THE GOMEZ A FEW TIMES AND IS GOOD ABOUT MAKING HER NEEDS KNOWN. CALL LIGHT IS WITHIN REACH, BUT SHE TENDS TO WALK OUT AND REQUEST THINGS HERSELF. WILL CONTINUE TO MONITOR.
--- NOTE | 2022-10-22 04:26 | NUR ---
SHIFT SUMMARY; NO ACUTE CHANGES OVERNIGHT. THE PT WALKED THE GOMEZ A FEW TIMES THIS EVENING. PT STATED UNABLE TO SLEEP UNTIL AROUND 2200. THE PT IS AXO X2-3, INTERMITTEN CONFUSION. THE PT DENIES ANY SOB, PAIN, CHEST PAIN/PRESSURE THIS SHIFT. PT REPORTS HER FEET ITCH THIS EVENING, RED IN COLOR. CURRENTLY THE PT IS SLEEPING IN BED WITH THE BED IN THE LOWEST POSITION AND THE CALL LIGHT AT BEDSIDE.
--- NOTE | 2022-10-22 17:18 | NUR ---
ASSUMED CARE OF PATIENT WITH PRECEPTOR AMANDA AT 0645. PATIENT HAD ELEVATED BLOOD PRESSURE THIS AM. NEW MEDICATION ORDER WAS PLACED MY DR. TEJEDA FOR ZESTRIL 40MG TO START 10/23/22. PATIENT WAS PLESENTLY CONFUSED, PATIENT AMBULATED THE HALLWAYS TODAY. SEVERAL TIMES THIS SHIFT PATIENT WAS CONFUSEND AND UPSET TO WHY HER LEFT HER HERE. THIS SENIOR CATEGORY MANAGER ATTEMPTED TO ORIENT PATIENT THAT SHE WAS IN THE HOSPITAL. WILL CONTINUE TO PROVIDE CARE PLANNED. CALL LIGHT IS WITH IN REACH.
--- NOTE | 2022-10-23 05:34 | NUR ---
PATIENT SLEPT FOR SOME OF THE NIGHT, ORIENTED TO SELF. PATIENT IS PLEASANT, HOLDS A CONVERSATION BUT IS CONFUSED. IND IN ROOM AND HALLS. BS HYPERACTIVE BUT CANT REMEMBER WHEN HER LAST BM WAS. COOPERATIVE WITH CARE. NO OTHER ISSUES TO REPORT.
[2022-10-23] MEDS ORDERED: MEMA5TAB PO (10:01)
[2022-10-23] MEDS ORDERED: NICODERM CQ1 EA11 TOP (10:02)
[2022-10-23] MEDS ORDERED: OLAN10A MM (10:03)
--- NOTE | 2022-10-23 10:32 | NUR ---
PT DISCHARGED THE PTS VERBALIZED UNDERSTANDING OF THE DC INSTRUCTIONS. PTS STATED THAT HE DIDNT FEEL THAT THE PT SHOULD BE RELEASED HOME WITH HER DEMENTIA. DR. TEJEDA CAME AND SPOKE WITH THE PTS . THE PT WAS DISCHARGED. PTS PRESCRIPTIONS WERE FAXED TO [facility]. PT WAS TRANSFERED VIA WHEELCHAIR TO THE FRONT. THE PT WAS COOPERATIVE AT THE TIME OF DC
== END 2022-10-23 10:22 | disposition home health service (06) | DRG 92 ==
LOC: ER 16:50 → MEDS 10-09 02:23
PROVIDERS: Family Medicine; Physician Assistant; Student in an Organized Health Care Education/Training Program; ADMIT Internal Medicine
DX: G92.8 Other toxic encephalopathy (principal); F03.918 Unspecified dementia, unspecified severity, with other behavioral disturbance; N17.9 Acute kidney failure, unspecified; R44.0 Auditory hallucinations; F17.210 Nicotine dependence, cigarettes, uncomplicated; I12.9 Hypertensive chronic kidney disease with stage 1 through stage 4 chronic kidney disease, or unspecified chronic kidney disease; E87.6 Hypokalemia; I48.0 Paroxysmal atrial fibrillation; N18.30 Chronic kidney disease, stage 3 unspecified; R21 Rash and other nonspecific skin eruption; R44.1 Visual hallucinations; B02.9 Zoster without complications; E86.0 Dehydration; Z20.822 Contact with and (suspected) exposure to COVID-19; W19.XXXA Unspecified fall, initial encounter; Z91.038 Other insect allergy status; Z90.710 Acquired absence of both cervix and uterus; Z71.6 Tobacco abuse counseling; Z79.899 Other long term (current) drug therapy; Z79.2 Long term (current) use of antibiotics
CPT/HCPCS: 0241U; 36415; 51701; 70450; 70553; 71045; 80053; 80069; 81001; 83605; 84145; 84484; 85025; 93005; 93010; 96361-59; 96365-59; 96366-59; 96368; 96375-59; 97110; 97116; 97162; 97166; 97530; 99285-25; A9270; A9579; J0360; J1790; J3475; J3480; J7030

== ENCOUNTER 2023-12-18 13:03 | Emergency (ER) | payer OTHER ==
[~2023-12-18] VITALS: Ht 182.9 cm; Wt 77.1 kg
[~2023-12-18 13:03] MED LIST changes: +ATEN100 PO; +MEMA5TAB PO; +NICODERM CQ1 EA11 TOP; +OLAN10A MM; +Prinivil10 MG PO
[2023-12-18] MEDS ORDERED: LORazepam 2 MG/ML 1ML Injection IV ONE ×2 (13:15→15:35)
[2023-12-18 13:31] LABS: BASOPHILS ABSOLUTE AUTO 0.09 K/mm3 (0.00-0.23); BASOPHILS PERCENT AUTO 1 % (0-2); EOSINOPHILS PERCENT AUTO 1 % (0-6); Hematocrit 51.2 % (33.0-51.0); Hemoglobin 17.2 g/dL (11.5-16.0); IMMATURE GRAN ABSOLUTE AUTO 0.03 K/mm3 (0.00-0.10); IMMATURE GRAN PERCENT AUTO 0 % (0-1); LYMPHOCYTES ABSOLUTE AUTO 1.73 K/mm3 (0.84-5.20); LYMPHOCYTES PERCENT AUTO 14 % (21-46); MONOCYTES ABSOLUTE AUTO 0.97 K/mm3 (0.16-1.47); MONOCYTES PERCENT AUTO 8 % (4-13); Mean Corpuscular HGB 31.2 pg (26.0-34.0); Mean Corpuscular HGB Conc 33.6 g/dL (31.5-36.5); Mean Corpuscular Volume 93 fL (80-100); Mean Platelet Volume 11.2 fL (9.1-12.4); NEUTROPHILS ABSOLUTE AUTO 9.91 K/mm3 (1.96-9.15); NEUTROPHILS PERCENT AUTO 77 % (41-73); Platelet Count 214 K/mm3 (150-400); RDW Coefficient Variation 13.8 % (11.7-14.2); RDW Standard Deviation 46.9 fL (35.1-46.3); Red Blood Cell Count 5.52 M/mm3 (3.80-5.20); White Blood Cell Count 12.83 K/mm3 (4.00-11.30)
[2023-12-18 13:56] LABS: Ethanol (Alcohol), Blood, Med <3 mg/dL
[2023-12-18 13:57] LABS: Alanine Aminotransfer (ALT/SGP 19 U/L (12-78); Albumin, Blood 4.3 g/dL (3.4-5.0); Albumin/Globulin Ratio 1.1 (0.8-1.8); Alk Phos 85 U/L (50-136); Anion Gap 14 mmol/L (3-11); Aspartate Aminotrans (AST/SGOT 40 U/L (12-37); Bilirubin, Total 1.2 mg/dL (0.1-1.0); Blood Urea Nitrogen 23 mg/dL (8-24); Bun/Creatinine Ratio 23.7 (12.0-20.0); CO2, Blood 22 mmol/L (21-32); Calcium, Blood 9.9 mg/dL (8.5-10.1); Chloride, Blood 108 mmol/L (98-108); Creatinine, Blood 0.97 mg/dL (0.40-1.00); Glomerular Filtration Rate 61 (60-); Glucose, Blood 148 mg/dL (70-99); Potassium, Blood 5.2 mmol/L (3.5-5.5); Sodium, Blood 139 mmol/L (136-145); Total Protein, Blood 8.3 g/dL (6.4-8.2)
[2023-12-18 14:58] LABS: Source, Urine Voided
[2023-12-18 15:02] LABS: Appearance, Urine Cloudy (Clear); Blood, Urine 4+ (Neg); Color, Urine Yellow (P-Yellow); Glucose Qualitative, Urine Neg (Neg); Ketones, Urine 3+ (Neg); Leukocyte Esterase, Urine 3+ (Neg); Nitrite, Urine Neg (Neg); Protein, Urine 3+ (Neg); Specific Gravity, Urine 1.025 (1.003-1.022); Urobilinogen, Urine 2+ (Normal)
[2023-12-18 15:05] LABS: Bilirubin, Urine 1+ (Neg)
[2023-12-18 15:19] LABS: Bacteria Many /hpf; Hyaline Casts 0-2 /lpf (0-2); Squamous Epithelial Cells Few /hpf (Few); White Blood Cells, Urine 25-50 /hpf (0-5)
[2023-12-18 15:29] LABS: U Amphetamine Screen Not Detected; U Barbituate Screen Not Detected; U Benzodiazapine Screen Not Detected; U Buprenorphine Screen Not Detected; U Cannabinoids Screen DETECTED; U Cocaine Screen Not Detected; U Methadone Screen Not Detected; U Methamphetamine Screen Not Detected; U Opiates Screen Not Detected; U Oxycodone Screen Not Detected; U Phencyclidine Screen Not Detected
[2023-12-18] MEDS ORDERED: CefTRIAXone Sodium 1,000 MG in NS 50 ML IV ONE (15:30)
[2023-12-18 15:41] VITALS: BP 147/116
[2023-12-18] MEDS ORDERED: CEPH500 PO (16:02)
== END 2023-12-18 16:47 | disposition home or self-care (01) ==
LOC: ER 13:03
PROVIDERS: Emergency Medicine
DX: N39.0 Urinary tract infection, site not specified (principal); R41.0 Disorientation, unspecified; Z91.030 Bee allergy status; Z79.899 Other long term (current) drug therapy; I10 Essential (primary) hypertension; I48.91 Unspecified atrial fibrillation; F17.210 Nicotine dependence, cigarettes, uncomplicated
CPT/HCPCS: 51701; 70450; 80053; 81001; 85025; 87077; 87086; 87186; 93005; 93010; 96365-59; 96375-59; 96376-59; 99285-25; J0696; J2060

== ENCOUNTER 2024-04-27 21:08 | Inpatient (IN) | payer OTHER ==
[~2024-04-27] VITALS: Ht 172.7 cm; Wt 58.2 kg
[~2024-04-27 21:08] MED LIST changes: +CEPH500 PO; +NS 1,000 ML IV SCH
[2024-04-27] MEDS ORDERED: Diltiazem HCl 5 MG / ML 5ML Vial IV ONE (21:35)
[2024-04-27] MEDS ORDERED: NS 1,000 ML IV SCH (21:40)
[2024-04-27 22:07] LABS: BASOPHILS ABSOLUTE AUTO 0.12 K/mm3 (0.00-0.23); BASOPHILS PERCENT AUTO 1 % (0-2); EOSINOPHILS ABSOLUTE AUTO 0.04 K/mm3 (0.00-0.68); EOSINOPHILS PERCENT AUTO 0 % (0-6); Hematocrit 49.1 % (33.0-51.0); Hemoglobin 16.1 g/dL (11.5-16.0); IMMATURE GRAN ABSOLUTE AUTO 0.09 K/mm3 (0.00-0.10); IMMATURE GRAN PERCENT AUTO 1 % (0-1); LYMPHOCYTES ABSOLUTE AUTO 1.76 K/mm3 (0.84-5.20); LYMPHOCYTES PERCENT AUTO 9 % (21-46); MONOCYTES ABSOLUTE AUTO 1.24 K/mm3 (0.16-1.47); MONOCYTES PERCENT AUTO 7 % (4-13); Mean Corpuscular HGB 31.1 pg (26.0-34.0); Mean Corpuscular HGB Conc 32.8 g/dL (31.5-36.5); Mean Corpuscular Volume 95 fL (80-100); Mean Platelet Volume 11.2 fL (9.1-12.4); NEUTROPHILS ABSOLUTE AUTO 15.55 K/mm3 (1.96-9.15); NEUTROPHILS PERCENT AUTO 83 % (41-73); Platelet Count 337 K/mm3 (150-400); RDW Coefficient Variation 14.2 % (11.7-14.2); RDW Standard Deviation 49.3 fL (35.1-46.3); Red Blood Cell Count 5.17 M/mm3 (3.80-5.20)
[2024-04-27 22:07] LABS: Source, Urine Foley catheter
[2024-04-27 22:11] LABS: Appearance, Urine Hazy (Clear); Bilirubin, Urine Neg (Neg); Blood, Urine 4+ (Neg); Color, Urine Yellow (P-Yellow); Glucose Qualitative, Urine Neg (Neg); Ketones, Urine 3+ (Neg); Leukocyte Esterase, Urine 1+ (Neg); Nitrite, Urine Neg (Neg); Protein, Urine 2+ (Neg); Specific Gravity, Urine 1.025 (1.003-1.022); Urobilinogen, Urine 1+ (Normal)
[2024-04-27 22:19] LABS: Amorphous Light (0-Heavy); Mucus Light (0-Heavy); Red Blood Cells, Urine 0-2 /hpf (0-2); Squamous Epithelial Cells Mod /hpf (Few)
[2024-04-27 22:21] LABS: Bacteria Many /hpf
[2024-04-27 22:33] LABS: Alanine Aminotransfer (ALT/SGP 20 U/L (12-78); Albumin/Globulin Ratio 1.1 (0.8-1.8); Alk Phos 84 U/L (50-136); Anion Gap 16 mmol/L (3-11); Aspartate Aminotrans (AST/SGOT 23 U/L (12-37); Bilirubin, Total 0.9 mg/dL (0.1-1.0); Blood Urea Nitrogen 48 mg/dL (8-24); Bun/Creatinine Ratio 32.9 (12.0-20.0); CO2, Blood 17 mmol/L (21-32); Calcium, Blood 9.7 mg/dL (8.5-10.1); Chloride, Blood 122 mmol/L (98-108); Creatinine, Blood 1.46 mg/dL (0.40-1.00); Ethanol (Alcohol), Blood, Med <3 mg/dL; Globulin, Blood 3.5 g/dL (2.2-4.0); Glomerular Filtration Rate 38 (60-); Glucose, Blood 184 mg/dL (70-99); Magnesium, Blood 2.7 mg/dL (1.6-2.4); Potassium, Blood 3.7 mmol/L (3.5-5.5); Sodium, Blood 151 mmol/L (136-145); Total Protein, Blood 7.5 g/dL (6.4-8.2)
[2024-04-27] MEDS ORDERED: CefTRIAXone Sodium 1,000 MG in NS 50 ML IV ONE (22:35)
[2024-04-27 22:39] LABS: U Amphetamine Screen Not Detected; U Barbituate Screen Not Detected; U Benzodiazapine Screen Not Detected; U Buprenorphine Screen Not Detected; U Cannabinoids Screen DETECTED; U Cocaine Screen Not Detected; U Methadone Screen Not Detected; U Methamphetamine Screen Not Detected; U Opiates Screen Not Detected; U Oxycodone Screen Not Detected; U Phencyclidine Screen Not Detected
[2024-04-27 22:49] LABS: Influenza A, PCR NEGATIVE (NEGATIVE); Influenza B, PCR NEGATIVE (NEGATIVE); Resp Syncytial Virus, PCR NEGATIVE (NEGATIVE); SARS-Cov-2 (COVID-19) PCR, MMC NEGATIVE (NEGATIVE)
[2024-04-27] MEDS ORDERED: CefTRIAXone Sodium 1,000 MG in NS 100 ML IV ONE (23:45)
[2024-04-28] VITALS (7 sets, daily range): BP systolic 109–144; BP diastolic 84–116
[2024-04-28] MEDS ORDERED: Dextrose 5% 1,000 ML IV ONE (01:00)
[2024-04-28] MEDS ORDERED: OLANZapine ODT 10 MG Tab PO PRN (01:55)
[2024-04-28 02:21] LABS: Hematocrit 41.9 % (33.0-51.0); Mean Corpuscular HGB Conc 33.4 g/dL (31.5-36.5); Mean Corpuscular Volume 96 fL (80-100); Mean Platelet Volume 11.3 fL (9.1-12.4); Platelet Count 259 K/mm3 (150-400); RDW Coefficient Variation 14.3 % (11.7-14.2); RDW Standard Deviation 49.8 fL (35.1-46.3); Red Blood Cell Count 4.38 M/mm3 (3.80-5.20); White Blood Cell Count 17.12 K/mm3 (4.00-11.30)
[2024-04-28 02:41] LABS: Albumin, Blood 3.4 g/dL (3.4-5.0); Albumin/Globulin Ratio 1.1 (0.8-1.8); Bilirubin, Total 0.5 mg/dL (0.1-1.0); Bun/Creatinine Ratio 42.2 (12.0-20.0); Calcium, Blood 8.5 mg/dL (8.5-10.1); Creatinine, Blood 1.02 mg/dL (0.40-1.00); Globulin, Blood 3.1 g/dL (2.2-4.0); Magnesium, Blood 2.7 mg/dL (1.6-2.4); Total Protein, Blood 6.5 g/dL (6.4-8.2)
--- NOTE | 2024-04-28 04:23 | NUR ---
SHIFT SUMMARY- PATIENT ARRIVED FROM ED AT 0005. A&OX0, DOES NOT ANSWER QUESTIONS APPROPRIATELY- RAMBLES WITH NONSENSICAL SPEECH AND MAKES HYPERSEXUAL COMMENTS TOWARDS MALE STAFF MEMBERS. INAPPROPRIATE COMMENTS. VERY FIDGETY THIS SHIFT- CONTINUES TO PULL AT LINES- REDIRECTED FREQUENTLY. PRN ZYPREXA GIVEN FOR AGITATION WITH MINIMAL RELIEF, PATIENT HAS NOT SLEPT MUCH TONIGHT. AFIB IN 100S MAXED ON CARDIZEM GTT AT 15/HR. BP WNL, ON RA. AFEBRILE, RECEIVING ROCEPHIN FOR UTI. NOT OOB YET, DEBILITATED WITH FREQUENT FALLS AT HOME, MAY BENEFIT FROM A PT/OT EVAL. PATIENT IS NPO BUT PASSED A BEDSIDE SWALLOW EXAM, NEEDS A DIET ORDER. CHERYL POWERGLIDE PLACED THIS SHIFT DUE TO BEING A DIFFICULT IV START/LAB DRAW. AFIB/AFLUTTER ON TELE (BOTH, CHANGES) IN THE 100S. NOT ANSWERING THE PHONE, # LISTED ON THE WHITE BOARD.
--- NOTE | 2024-04-28 05:33 | NUR ---
RHYTHM CHANGE PATIENT CONVERTED FROM AFIB IN THE 100S TO ST IN THE 160S, CERTIFIED LOW VISION THERAPIST RESIDENT CALLED, WILL RE-ATTEMPT CONTACT IN 10 MINUTES. NO PRN ORDERS AT THIS TIME.
[2024-04-28] MEDS ORDERED: Enoxaparin 40 MG/0.4 ML SYR SC SCH (09:00)
[2024-04-28] MEDS ORDERED: Lactobacil 2-S.Thermo-Bifido 1 1 Cap PO SCH (09:00)
[2024-04-28] MEDS ORDERED: Metoprolol Tartrate 1 MG/ML 5 ML VIAL IV STA (09:19)
--- NOTE | 2024-04-28 12:29 | NUR ---
Bedside report from WAYNE Goodrich. The pt is awake, word salad speech and confused. Does not follow directions. Sitter at the bedside.
--- NOTE | 2024-04-28 13:01 | NUR ---
Pt is sleeping. Atrial flutter/atrial fibrillation at 100-109. Cardizem still infusing at 15 cc/hour, 15 mg/ hour rate.
[2024-04-28] MEDS ORDERED: Haloperidol Lactate Inj. 5 MG/ML Injection IV PRN (13:25)
[2024-04-28] MEDS ORDERED: Morphine Sulfate 10 MG/ML 1MLSYR IV PRN (13:25)
[2024-04-28] MEDS ORDERED: Ondansetron HCl 2 MG / ML 2ML Vial IV PRN (13:25)
[2024-04-28] MEDS ORDERED: Acetaminophen 650 MG Supp PR PRN (13:25)
[2024-04-28] MEDS ORDERED: LORazepam 2 MG/ML 1ML Injection IV PRN (13:25)
--- NOTE | 2024-04-28 14:00 | NUR ---
Pt is sitting up in bed, eating cookies and talking, mostly confusedly, with the staff in the room. She is cheerful. Heart rate 112-130s mostly, occasionally spiked to 140-166 in the past 15 minutes. Cardizem gtt running at 15 cc/hour
--- NOTE | 2024-04-28 16:04 | NUR ---
ASSESSED SRIDEVI, SHE IS CONFUSED. SHE WAS CURRENTLY SITTING UP IN BED EATING. I DISCUSSED CASE WITH HEALTH UNDERWRITER AND BEDSIDE RN. CALLED TO DISCUSS HER RECENT HEALTH. HE REPORTED THAT SHE HAS HAD A STEADY DECLINE SINCE WHEN SHE WAS LAST IN THE HOSPITAL. HE REPORTS THAT SHE HAS NOT BATHED SINCE THEN BECAUSE HE HAS HAD DIFFICULTY DIRECTING HER. HE REPORTS THAT SHE HAS HAD A POOR ORAL INTAKE FOR SEVERAL WEEKS. SHE HAS FALLEN. HE REPORTS RECENT INCONTINCE IN BED AND ON THE FLOOR. HE REPORTS THAT SHE WAS PENDING HOSPICE INTAKE TODAY. HE HAS CONCERNS FOR BEING ABLE TO CARE FOR HER AT HOME IN THE MANNER SHE IS CURRENTLY REQUIRING. DISCUSSED CASE WITH SOCIAL WORK AND CARE COORDINATION. IS AGREEABLE TO COMFORT CARE IN THE HOSPITAL SETTING. PC DISCUSSED WITH PROVIDER AND ORDERS PLACED.
[2024-04-28] MEDS ORDERED: Atenolol 50 MG Tab PO SCH (20:00)
[2024-04-28] MEDS ORDERED: CefTRIAXone Sodium 2,000 MG in NS 100 ML IV SCH (21:00)
--- NOTE | 2024-04-29 00:57 | NUR ---
PT TRANSFERRED FROM PCU RM#9 TO MEDICAL FLOOR RM#340 @0053. PT TRANSPORTED VIA HOSPITAL BED, WITH TWO PCU STAFF AND 1:1 SITTER. PT AWAKE, ALERT, ORIENTED X0. PT TALKING WORDSALAD. PT INTRODUCING STAFF MEMBERS HER "FAMILY." NO ACUTE DISTRESS NOTED AT THIS TIME. PT CONTINUES TO HAVE 1:1 SITTER FOR SAFETY, AND PT IS ON COMFORT CARE MEASURES.
--- NOTE | 2024-04-29 01:01 | NUR ---
TRANSFER REPORT GIVEN TO MEDICAL FLOOR NURSE. PATIENT TRANSFERRED TO ROOM 340 WITH ALL BELONGINGS AND CHART. PATIENT ALERT, ORIENTED TO SELF ONLY. VERY CONFUSED. PATIENT WOULD AT TIMES ANSWER QUESTIONS APPROPRIATELY BUT THE MOJORITY OF SPEECH WAS NONSENSICAL MUMBLING TO HERSELF AND THE OCCASIONAL OUTBURST OF ANGER. PATIENT COMFORT CARE STATUS. MEDICATED PER EMAR FOR AGITATION. PUREWICK AND ATTENDS IN PLACE. PATIENT MOVING SELF IN BED. 1:1 SITTER AT BEDSIDE WITH PATIENT SINCE START OF SHIFT.
--- NOTE | 2024-04-29 14:30 | NUR ---
TRANSFER NOTE- PT WAS TRANSFERED TO THE SCU FOR CLOSER MONITORING R/T HER RISK FOR FALLS AND CONFUSION. SHE WAS SLEEPING SOUNDLY AGAIN AT THE TIME SHE WAS TRANSFERED AND SLEPT THROUGH THE ROOM CHANGE, TRANSFERED IN THE BED.
--- NOTE | 2024-04-29 16:52 | NUR ---
ROUNDED ON PT THIS SHIFT. SHE WAS RESTING IN BED. REPORTED THAT SHE APPEARED MORE AT EASE TODAY. FILLED OUT POLST WITH VIRGEN AND HE ELECTED FOR DNR AND COMFORT MEASURES. HE DISCUSSED HOW HE WAS UNABLE TO CARE FOR HER THE WAY SHE NEEDS AT THIS TIME. DR. MALONE WAS PRESENT DURING THIS DISCUSSION. PC WILL CONTINUE TO FOLLOW
--- NOTE | 2024-04-29 17:28 | NUR ---
PATIENT TRANSFERRED FROM ROOM 340 TO 344 THIS AFTERNOON. SHE HAD A GOOD NAP THIS AFTERNOON. THE PATIENT HAD AN INCONTINENT VOID. REPOSITIONED IN BED WITH 2PA. ON RA. INCOHERANT SPEECH. IN GOOD SPIRITS, IT SEEMS. 1:1 SITTER. WILL CONTINUE TO MONITOR
[2024-04-29] MEDS ORDERED: NS 250 ML IV PRN (20:10)
--- NOTE | 2024-04-30 06:04 | NUR ---
Shift Summary Pt AOx1, constantly talking with heavy word salad even when alone. I gave her PRN ativan 0.5 mg x1 to help her sleep, she was up most of the night and did fall asleep around 0530. She is incontinent, purewick in place and attends changed as needed. She is cooperative with care and pleasant this shift. She pulled out her IV on her L wrist, her CHERYL powerglide remains intact.
--- NOTE | 2024-04-30 16:49 | NUR ---
PATIENT IS ALERT AND DISORIENTED. SHE WOKE UP FOR A FEW BITES OF BREAKFAST THEN FELL ASLEEP UNTIL AFTER LUNCH. HER CAME TO THE ROOM AND ASKED THE RN FOR AN UPDATE, HE DID NOT STAY. THE PATIENT IS INCONTINENT OF BLADDER, SHE TOLERATED THE PUREWICK FOR A SHORT TIME THIS SHIFT. SHE CAN BECOME AGITATED WITH ATTENDS CHANGES AND REPOSITIONING. SHE IS SITTING IN BED EATING A SNACK AT THIS TIME. NO NEW CONCERNS. WILL CONTINUE TO MONITOR
--- NOTE | 2024-04-30 17:26 | NUR ---
ALEISHAD PATIENT AND DISCUSSED WITH PROVIDER AND FRONT CLERK. IT WAS REPORTED THAT SHE WAS EATING WELL THIS SHIFT. RELAYED MY CONVERSATION WITH PATIENTS ABOUT ELAINES RECENT CHANGE IN CONDITION AND HIS STRUGGLES CARING FOR HER. DISCUSSED PLAN OF CARE. PC WILL CONTINUE TO FOLLOW
--- NOTE | 2024-05-01 15:53 | NUR ---
Pt is on comfort care, confused, A-O only to self, and hallination, pt shows no signs of pain or SOB, on bedrest and RA. Lungs clear, heart regular, bowel sounds normative, incontient of urine. Pt can not make needs known, call snow in hand, bed in lowest position, comfort ensured.
--- NOTE | 2024-05-02 16:31 | NUR ---
Pt is on Comfort care, Confused only oriented to self, shows no signs of pain, no signs of SOB, 2x assist stand and pivet to chair, on RA. Lungs clear, heart regular, bowel sounds normative, incontent of urine. Pt can not make needs known, call snow in hand, bed in lowest position, comfort ensured.
--- NOTE | 2024-05-03 05:11 | NUR ---
SHIFT SUMMARY. PATIENT IS ALERT TO SELF. PATIENT IS PLEASANTLY CONFUSED, TALKING TO SELF OFF AND ON T/O THE NIGHT. PATIENT BECOMES AGITATED WHEN CHECKING HER BRIEF OR ROLLING HER IN BED TO DO PATIENT CARE. PATIENT BLADDER SCANNED-VOLUME 328-PATIENT FEELS SHE CAN VOID-GIVING PATIENT TIL 6AM TO VOID THEN WILL REASSES. PATIENTS BED CHANGED THIS SHIFT. BED IS LOCKED IN THE LOWEST POSITION WITH CALL LIGHT IN REACH. CARE IS ONGOING.
--- NOTE | 2024-05-03 06:55 | NUR ---
PATIENT AGGRESSIVE DURING CHANGING. DURING LAST ROUNDS PATIENT HIT AND SCRATCHED THIS RN. PATIENT SWINGING AT STAFF DURING CHANGING THIS AM.
--- NOTE | 2024-05-03 15:52 | NUR ---
Pt on comfort care, confused, only oriented to self, shows no signs of pain, shows no signs of SOB, on bedrest, on RA. Lungs clear, heart regular, bowel sounds normative, incontent of urine. Pt can not make needs known, call snow in hand, bed in lowest position, comfort ensured.
--- NOTE | 2024-05-04 04:47 | NUR ---
SHIFT SUMMARY PATIENT ON COMFORT CARE. ALERT TO SELF AND BEDREST. AUDITORY HALLUCINATIONS. NO S/SX OF PAIN, SOB, AND N/V. NOT ABLE TO MAKE NEEDS KNOWN. RESTED IN BED T/O SHIFT. CALL LIGHT IN REACH. BED IN LOWEST POSITION WITH ALARM. WILL CONTINUE TO MONITOR UNTIL DAY SHIFT NURSE ASSUMES CARE.
[2024-05-04] MEDS ORDERED: Nicotine 7 MG PATCH TOP SCH (14:05)
--- NOTE | 2024-05-04 16:49 | NUR ---
SUMMARY- PT ALERT TO SELF, SLEPT MOST OF THE MORNING, AWOKEN AND GOT UP TO BED SIDE COMMODE WITH 2 SBA, SLOW ADQ STRENGTH, VOIDED. TOLERATING FOOD AND FLUIDS FOR LUNCH. PT SEVERLY CONFUSED AND TALKING TO HERSELF, HALLUCINATING AND USES A LOT OF SWEAR WORDS. LOOKS AT STAFF IF VERY CONFUSED. DENIES PAIN. MEDICATED WITH ATIVAN 1MG ONCE THIS AFTERNOON AND PT SLEPT FOR A FEW HOURS, RESP E/U. WILL REPORT TO NOC RN
--- NOTE | 2024-05-05 05:15 | NUR ---
SHIFT SUMMARY PATIENT IS ALERT AND ORIENTED TIMES 1. PATIENT WAS ADMITTED TO PCU FOR SEPSIS SECONDARY TO UTI AND RAPID ATRIAL FIBRILLATION. CKD STAGE III, PAROXYSMAL ATRIAL FIBRILLATION. PATIENT HAS POWER GLIDE ON LEFT ARM. PATIENT ABLE TO USE BEDSIDE COMMODE WITH TWO PERSON ASSIST. PATIENT IS COMFORT CARE. ALTERED MENTAL STATUS. PATIENT WAS COMBATIVE DURING CHANGING HER DEPENDS. APPEARED TO SLEEP THROUGH THE NIGHT. PATIENT IS DNR.
--- NOTE | 2024-05-05 17:00 | NUR ---
SHIFT SUMMARY: PT IS A&OX0-1 (SELF) AND A 1 PERSON ASSIST TO THE BSC/BATHROOM, CONTINENT/INCONTINENT. DOESN'T USE HER CALL LIGHT; ATTEMPTS TO MAKE HER NEEDS KNOWN BY GETTING STAFFS ATTENTION. SHE IS OVERALL PLEASANT AND COOPERATIVE WITH CARE. SHE CAN SAY INAPPROPRIATE COMMENTS/STATEMENTS, BUT HAS NOT BEEN COMBATIVE. SHE DENIES PAIN. SHE IS EATING AND DRINKING WELL. SHE WILL GET ANXIOUS/AGITATED AND ATTEMPT TO GET UP OUT OF BED. SHE IS CURRENTLY RESTING; RESPIRATIONS EVEN AND UNLABORED, CALL LIGHT WITHIN REACH, BED ALARM SET, PATIENT ABLE TO MOVE ABOUT INDEPENDENTLY IN THE BED, REQUIRES MINIMAL/MODERATE ASSISTANCE WITH CARE. NO SIGNS OR SYMPTOMS OF DISTRESS, PLAN OF CARE ONGOING-PATIENT ON COMFORT CARE; APPEARS COMFORTABLE, NOT IMMINENT. .
--- NOTE | 2024-05-06 05:50 | NUR ---
SHIFT SUMMARY PATIENT ALERT AND ORIENTED TIMES 2. PATIENT HAD MULTIPLE NON-LINEAR CONVERSATIONS WITH UNSEEN OTHERS. PATIENT WAS COOPERATIVE WHEN STAFF NEEDED TO DO A BED AND CLOTHING CHANGE. PATIENT APPEARED TO SLEEP ON AND OFF THROUGH THE NIGHT WITHOUT ISSUE. 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 PATIENT WAS INCONTINENT OF URINE TWICE DURING THE NIGHT. PATIENT DENIED PAIN DURING THE NIGHT. BED IN LOW POSITION, RAILS TIMES 3, AND CALL LIGHT WITHIN REACH.
--- NOTE | 2024-05-06 12:13 | NUR ---
DR. FLOOD CAME BY AND CLIPPED PATIENT'S TOENAILS. SKIN EXPOSURE AND BLEEDING ON BILTERAL 4TH TOES AND THE L 5TH TOE. AREAS CLEANSED, BACITRACIN AND BANDAGE APPLIED AND THEN SOCKS. PATIENT OVERALL TOLERATED PROCEDURE WELL.
--- NOTE | 2024-05-06 17:52 | NUR ---
SHIFT SUMMARY: SHE CONTINUES TO BE ALERT, EATING/DRINKING, AND IS AMBULATORY. SHE IS IMPULSIVE WILL GET UP INDEPENDENTLY AND WANDER; SETTING BED AND CHAIR ALARMS OFF. PATIENT IS NOT STEADY ENOUGH OR COGNITIVELY INTACT ENOUGH TO BE AMBULATING ALONE. PATIENT BEHAVIORS ARE TENDING TO BE MORE INAPPROPRIATE TOWARDS STAFF; BOTH VERBALLY AND PHYSICALLY. TWICE TODAY SHE HAS ATTEMPTED TO WANDER INTO OTHER PATIENT ROOMS WHILE SAYING PROFANITIES. SHE CAN BE DIRECTABLE VERSUS NON REDIRECTABLE/RESISTANT. SHE IS CURRENTLY IN HER CHAIR; CHAIR ALARM SET, JUST FINISHED VOIDING CONTINENTLY ON THE TOILET, AWAITING DINNER, CALL LIGHT WITHIN REACH, NO SIGNS OR SYMPTOMS OF DISTRESS, PLAN OF CARE ONGOING.
--- NOTE | 2024-05-06 18:52 | NUR ---
PT GOT OUT OF CHAIR, SETTING OFF CHAIR ALARM, ATTEMPT TO REDIRECT PT SHE BEGAN TO WANDER AROUND THE ROOM, AT ONE POINT PT BECAME UNSTEADY, BRACING HERSELF AGAINST THE WALL, THIS PAYROLL TAX SPECIALIST STABILIZED PT, CALLED FOR ASSISTANCE, PT UNWILLING TO FOLLOW INSTRUCTIONS, CAUSING THIS PAYROLL TAX SPECIALIST TO ASSIST THE PT TO SIT ON TO THE FLOOR. NO INJURY OCCURED DURING INCIDENT; PT WAS THEN ABLE TO GET UP OFF FLOOR AND BACK INTO CHAIR WITH STAFF ASSIST. CHAIR ALARM ON. NO SIGNS OR SYMPTOMS OF DISTRESS. PRIMARY RN NOTIFIED.
--- NOTE | 2024-05-06 18:59 | NUR ---
AROUND 183 THE MACHINE OPERATOR SLITTER TECHNICIAN CALLED OVER [facility] ASKING FOR ME TO COME TO ROOM 344. THIS RN WAS UNABLE TO DO SO AT THAT TIME DUE TO BEING IN ANOTHER PATIENT ROOM PROVIDING CARE AND NOT ABLE TO LEAVE THE PATIENT'S ROOM THAT THIS RN WAS IN. ASKED THE MACHINE OPERATOR SLITTER TECHNICIAN IF EVERYTHING WAS OKAY AND THE MACHINE OPERATOR SLITTER TECHNICIAN RESPONDED WITH YES. ONCE I WAS DONE IN THE OTHER ROOM I CAME TO ROOM 344. THE PATIENT WAS IN THE CHAIR, NO SIGNS OR SYMPTOMS OF DISTRESS. WAS TOLD BY MACHINE OPERATOR SLITTER TECHNICIAN AND OTHER NURSING STAFF THAT THE PATIENT EXITED HER CHAIR SETTING OFF THE CHAIR ALARM, MACHINE OPERATOR SLITTER TECHNICIAN ENTERED ROOM, PATIENT BEGAN TO WANDER AROUND THE ROOM, BECAME UNSTABLE AND BRACED HERSELF AGAINST THE WALL, THE MACHINE OPERATOR SLITTER TECHNICIAN ASSISTED THE PATIENT TO THE FLOOR SHE CALLED FOR ASSISTANCE DUE TO THE PATIENT NOT FOLLOWING DIRECTIONS, NO INJURES WERE SUSTAINED DURING THIS INCIDENT. PER MACHINE OPERATOR SLITTER TECHNICIAN AND OTHER NURSING STAFF PATIENT WAS ABLE TO ASSIST HERSELF WITH THEIR HELP ONTO HER FEET AND INTO THE CHAIR. PATIENT IN NOW CURRENTLY IN BED, BED ALARM ON, BED RAILS UP, CALL LIGHT WITHIN REACH.
--- NOTE | 2024-05-07 05:50 | NUR ---
SHIFT SUMMARY PATIENT IS ALERT AND ORIENTED TIMES 1. PATIENT DENIES PAIN. PARTIALLY ABLE TO MAKE NEEDS KNOWN. APPEARS TO BE SLEEPING COMFORTABLY. BED ALARM IS ON AND IN LOW POSITION, RAILS ARE TIMES 3, AND CALL LIGHT WITHIN REACH. BED IN LOW POSITION, RAILS ARE TIMES TWO, AND CALL LIGHT WITHIN REACH.
[2024-05-07] MEDS ORDERED: HYDROcodone 5-APAP 325 TAB PO PRN (09:00)
[2024-05-07] MEDS ORDERED: HYDROcodone 5-APAP 325 TAB PO ONE (09:00)
--- NOTE | 2024-05-07 16:29 | NUR ---
SHIFT SUMMARY: PATIENT MORE SOMNULENT TODAY; WAS ALERT FOR THE MORNING SHORT PART OF THE EARLY AFTERNOON; ATE BREAKFAST/LUNCH, WALKED TO THE BATHROOM, HAD A VISIT FROM HER AND DOG, THEN AFTERWARDS WENT TO BED AND FELL ASLEEP AND HAS BEEN ASLEEP SINCE. SHE IS SUPINE, RESTING COMFORTABLY, NO SIGNS OR SYMPTOMS OF DISTRESS, RESP EVEN AND UNLABORED, BED SLIGHTLY ELEVATED DUE TO SNORING. PLAN OF CARE ONGOING.
[2024-05-08 04:58] VITALS: BP 126/82
[2024-05-08 07:14] VITALS: BP 118/84
--- NOTE | 2024-05-08 16:34 | NUR ---
SHIFT SUMMARY PATIENT IS ALERT AND ORIENTED TO SELF ONLY. PATIENT HAS HAD NO ACUTE EVENTS THIS SHIFT. PATIENT HAS BEEN INTERACTIVE WITH STAFF. PATIENT HAS BEEN IMPULSIVE AND WANDERING IN HALLS AND SOMEWHAT REDIRECTABLE. PATIENT HAS HAD NO COMPLAINTS OF SOB, NAUSEA, VOMITTING OR NAUSEA THIS SHIFT. BED AND CHAIR ALARM HAS BEEN ON ALL SHIFT DUE TO RECENT FALL.
--- NOTE | 2024-05-08 21:06 | NUR ---
[facility] THIS [facility] PICKUP DRIVER D/T NO IV ACCESS, AND THE NEED OF CHANGING THE IV MEDS TO PO.
[2024-05-08] MEDS ORDERED: Ondansetron 4 MG SoluTab MM PRN (21:10)
[2024-05-08] MEDS ORDERED: LORazepam Conc 2 MG/ML - 1ML UDC PO PRN (21:10)
[2024-05-08] MEDS ORDERED: Haloperidol Lactate Inj. 5 MG/ML Injection IM PRN (21:10)
[2024-05-08] MEDS ORDERED: LORazepam 0.5 MG Tab SL PRN (21:20)
--- NOTE | 2024-05-09 03:12 | NUR ---
SHIFT SUMMARY PT CONTINUES IN COMFORT CARE. PT IS ALERT, ORIENTED TO SELF ONLY. WORDSALAD, AND HAS MOSTLY NON THREATNING AVH. PT IS EASILY REDIRECTABLE. PT IS COOPERATIVE WITH CARE, AND PLEASANT DURING THIS SHIFT. NO ACUTE CHANGES DURING THIS SHIFT. NORCO PRN PO 5/325MG X1 @HS (FACE SCALE) ADMINISTERED ORDERED WITH GOOD EFFECTIVNESS. SEE PREVIOUS NOTE REGARDING IV MEDS WERE CHANGED TO PO MEDS D/T NO IV ACCESS. BED ALARM FOR SAFETY. PT HAS A GOOD APPETITE AND GREAT INTAKE OF PO FLUIDS. NO ACUTE EVENTS/DISTRESS DURING THIS SHIFT.
[2024-05-09 07:34] VITALS: BP 163/87
[2024-05-09 14:43] VITALS: BP 139/80
--- NOTE | 2024-05-09 19:22 | NUR ---
PATIENT IS ALERT TO SELF. PATIENT IS SBA UP IN GOMEZ WANDERING AT VARIOUS TIMES THROUGHOUT DAY. PATIENT IS CONTINENT/INCONTINENT. RCVD PRN PAIN MED PER EMAR. BED ALARM IS ON. CHARM ALARM IS IN PLACE IN PATIENT ROOM. PATIENT EASILY REDIRECTED. PATIENTS BED IS IN THE LOWEST POSITION AND CALL LIGHT IS WITH REACH.
--- NOTE | 2024-05-10 04:59 | NUR ---
SUMMARY: PT A/O TO SELF ONLY BUT HAS BEEN PLEASANTLY CONFUSED OTHERWISE. SHE'S ABLE TO MAKE SOME NEEDS KNOWN BUT OFTEN RESPONDS TO Q'S NONSENSICALLY AND W/WORD SALAD. SHE'S UP W/ASSIST TO TOILET AND OCC.WANDERS HALLS. PT IS CONTINENT/INCONTINENT W/PULLUPS CHANGED PRN. NO ACUTE CHANGES. COMFORT MEASURES MAINTAINED. WCTM AND REPORT TO DAY RN.
[2024-05-10 09:46] VITALS: BP 105/76
--- NOTE | 2024-05-10 18:15 | NUR ---
SHIFT SUMMARY: PATIENT ALERT TO SELF ONLY. WANDERS IN ROOM AND IN HALLWAY, WANDERING IN OTHER ROOMS. PATIENT GIVEN PRN ZYPREXA FOR INCREASING AGITATION. USING CHAIR ALARM AND BED ALARM TO ALERT FOR SBA. PATIENT IS COOPERATIVE OF CARES. PATIENT TAKES MEDS WHOLE WITH WATER OR WITH BITES OF APPLESAUCE. PATIENTS BED IS IN LOW POSITION AND CALL LIGHT IS WITHIN REACH.
--- NOTE | 2024-05-11 03:09 | NUR ---
SUMMARY: PT ALERT ORIENTED TO SELF. ABLE TO VERBALIZE NEEDS WITH LOTS OF COAXING. REMAINS WITH WORD SALAD. AMBULATES WITH SBA. BED ALARM ON AT ALL TIMES. REMAINS A FALL RISK AND SET OFF BED ALARM SEVERAL TIMES THIS SHIFT. NO C/O PAIN THIS SHIFT. REMAINS ON COMFORT CARE. VSS. PT RESTING IN BED AT THIS TIME.
[2024-05-11] MEDS ORDERED: Haloperidol Lactate 2 MG/ML Conc 1ML Dose PO PRN (13:00)
--- NOTE | 2024-05-11 13:20 | NUR ---
CALL TO DR. GRIJALVA INFORMING OF PSYCH CONSULT ORDERED BY DR NEVILLE FOR GUARDIANSHIP. LEFT VOICEMAIL.
--- NOTE | 2024-05-11 18:32 | NUR ---
DAY SHIFT SUMMARY: A&OxSELF ONLY. DOES NOT USE CALL LIGHT. UNABLE TO EFFECTIVELY ADVOCATE NEEDS. WORD SALAD AND NONSENSICAL VERBALIZATION BUT DOES SPEAK THOUGH SHE UNDERSTANDS WHAT SHE IS TRYING TO CONVEY. AMBULATES INDEPENDENTLY WITH SOME WEAKNESS. REQUIRES FREQUENT REDIRECTION SHE FREQUENTLY WANDERS AND CIGARETTE SEEKS. EASILY REDIRECTED WITH SNACK AND PEPSI. INDEPENDENT WITH INTAKE. CONTINENT WITH ELIMINATION; BRIEFS FOR DIGNITY. NO IV ACCESS. MEDS WHOLE WITH FLUIDS, BUT MAY REQUIRE REDIRECTION TO TAKE. IN TO VISIT TODAY AND REQUESTING ASSISTANCE WITH COORDINATING GUARDIANSHIP. PSYCH CONSULT ORDERED; DR GRIJALVA TO COMPLETE TOMORROW. PAPERWORK ON DOOR FOR PT S FOR GUARDIANSHIP COORDINATION REFERENCES. MEDICATED x1 TODAY AFTER NOTED INCREASE IN AGITATION AND SUPPORTING OF LOW BACK WITH HAND. BED IN LOWEST POSITION. CALL LIGHT WITHIN REACH. ALL NEEDS MET. REPORT TO ONCHEAVENLY RN.
--- NOTE | 2024-05-12 06:46 | NUR ---
SHIFT SUMMARY: Pt is admitted for sepsis and is a DNR. is alert and able to make some needs known. Confusion noted with some word salad but also some moments of clarity. ADLs have been SBA. denies pain or discomfort with no noted SX of pain by staff during shift. Some wondering noted but was able to be redirected with little difficulty.
--- NOTE | 2024-05-12 16:35 | NUR ---
SHIFT SUMMARY: PT AOX1 TO SELF ONLY. NONSENSICLE SPEAK WITH WORD SALAD. CANNOT ANSWER QUESTIONS CONSISTENTLY AND FOLLOWS COMMANDS INTERMITTENTLY. INDEPENDENT WITH STANDBY ASSIST TO THE RESTROOM BUT WILL WALK AROUND. EASILY REDIRECTED. TOOK PILLS WITH WATER. NICOTINE PATCH CHANGED IN THE AM AT MORNING MED PASS. OT ATTEMPT TO DO COG EVAL BUT UNSUCESSFUL IN GETTING THEM TO ANSWER ANY QUESTIONS. DOCTOR INFORMED. CONSISTENT AT BASELINE AND ATE MOST OF THEIR MEALS. BED AT LOWEST POSITION, CALL LIGHT IN REACH AND PATIENT RESTING. CONTINUING CARE.
--- NOTE | 2024-05-12 17:18 | NUR ---
THIS BRIDGE ATTACHER HAS REVIEWED AND AGREES WITH ALL NOTES AND ASSESSMENTS BY WAYNE BREEN.
--- NOTE | 2024-05-13 07:13 | NUR ---
SHIFT SUMMARY: Pt is admitted for sepsis and is a DNR. is alert and able to make some needs known. Confusion noted with word salad. ADLs have been SBA. denies pain or discomfort with no noted SX of pain by staff during shift. An increase in wondering noted from the night prior. With some aggression and yelling. She was able to be redirected but at times with some difficulty
--- NOTE | 2024-05-13 16:45 | NUR ---
SHIFT SUMMARY: PT CONFUSED W/ DELUSIONS AOX1. WORDSALAD AND FORGETFUL/ IMPULSIVE. ZYTREXA GIVEN PRN FOR SOME AGGRESSION AND IMPULSIVENESS. GETS UP AND ATTEMPTS TO WANDER BUT REDIRECTED WITH DECAF COFFEE BACK INTO ROOM. INDEPENDENT TO THE BATHROOM AND TO AMBULATE. MOOD MOSTLY PLEASANT AND ADEQUATE PO INTATKE. TOOK MEDS WHOLE WITH WATER. PATIENT RESTING IN BED, BED IN LOWEST POSITION, AND CALL LIGHT IN REACH. CONTINUING CARE.
--- NOTE | 2024-05-13 18:33 | NUR ---
THIS ENTRY LEVEL RECRUITER HAS REVIEWED AND AGREES WITH ALL NOTES AND ASSESSMENTS BY WAYNE BREEN.
[2024-05-13 19:30] VITALS: BP 149/125
[2024-05-13 20:53] VITALS: BP 140/92
[2024-05-13 21:04] VITALS: BP 140/92
--- NOTE | 2024-05-13 22:35 | NUR ---
CALLED JERICHO R/T PT'S FALL, ATTEMPTED TO CALL EARLIER BUT HE WAS IN AN EMERGENCY AND UNABLE TO TALK. RELAYED DETAILS OF PT'S FALL AND INJURY TO PT'S NOSE. ORDERS FOR NOW ARE OK FOR JO, ARNOL PT'S CODE STATUS OF ALREADY A COMFORT CARE PT, MONITOR PT FOR MENTATION CHANGES AND INCREASED BLEEDING, CALL BACK FOR POSSIBLY FURTHER TESTING IF THERE ARE CHANGES. PRIMARY RN IS AWARE.
--- NOTE | 2024-05-14 05:26 | NUR ---
SHIFT SUMMARY PT A&O TO SELF AND IS CONFUSED. UNABLE TO REORIENT. PT EXPERIENCED AN UNWITNESSED FALL AT ABOUT 2030. PT ASSESSED, UNABLE TO VERBALIZE AND LOCALIZE ANY PAIN. PT NOSE SHOWS A LACERATION AND SWELLING. PHYSICIAN NOTIFIED INNA BY CHARGE NURSE. VSS AFTER FALL AND DURING SHIFT. DURING PT CARE AT 0430, PT BIT THIS NURSE ON THE LEFT FOREARM. PT PLACED IN A JO VEST FOR ATTEMPTING OOB UNSAFETLY AND NOT FOLLOWING DIRECTIONS. NO COMPLAINTS OF CP/PRESSURE OR SOB. PT SPENT MOST OF SHIFT IN BED WITH RESPIRATIONS EVEN AND UNLABORED. NO ACUTE EVENTS AT THIS TIME. PT LEFT IN A POSITION OF SAFETY WITH BED IN LOWEST POSITION, BED ALARM ENABLED, CALL LIGHT IN REACH. Q2HR REPOSITIONING.
[2024-05-14] MEDS ORDERED: Haloperidol Lactate Inj. 5 MG/ML Injection IM PRN (08:10)
[2024-05-14] MEDS ORDERED: Citalopram Hydrobromide 20 MG Tab PO SCH (09:00)
--- NOTE | 2024-05-14 18:14 | NUR ---
SHIFT SUMMARY PATIENT ALERT AND ORIENTED TO SELF. PATIENT WITH INCOHERENT SPEECH AND WORD SALAD INTERMITTENTLY. PATIENT IN JO VEST RESTRAINTS D/T CONTINUED ATTEMPTS TO GET OUT OF BED WITHOUT ASSISTANCE, NO DIRECTABLE, AGGRESSIVE BEHAVIORS WITH STAFF. PATIENT PINCHED STAFF MEMBER TODAY WHEN STAFF WAS PROVIDING INCONTINENCE CARE. PUREWICK PLACED TODAY. PATIENT WITH HEALTHY APPETITE. VIRGEN CAME TO VISIT THIS MORNING WITH THEIR PET DOG. SPOKE WITH VIRGEN REGARDING GUARDIANSHIP LETTER FROM PSYCH DOCTOR. LETTER PROVIDED TO VIRGEN AND COPY PLACED IN PAPER CHART. NO OTHER CONCERNS AT THIS TIME.
--- NOTE | 2024-05-15 06:42 | NUR ---
DURING COMPLETE BED CHANGE D/T PT VOIDING IN THE BED, PT REFUSED TO ALLOW US TO CHANGE HER GOWN AND JO. THE MACHINE GRAINER AND RN WERE ABLE TO ACCCOMPLISH A COMPLETE BED CHANGE.
--- NOTE | 2024-05-15 11:00 | NUR ---
PATIENT REMOVED FROM JO VEST RESTRAINT AT 1100. PATIENT MEETS DISCONTINUATION CRITERIA. PATIENT RESTING IN BED COMFORTABLE, ATTEMPTED TO ASSIST PATIENT TO RECLINER. PATIENT ABLE TO STAND WITH 2 PERSON ASSIST, BUT NOT DIRECTABLE. PATIENT STOOD UP AND THEN RESISTED ASSISTANCE AND PUSHED HERSELF BACK INTO BED. PATIENT THEN REPOSITIONED IN BED COMFROTABLY, GIVEN SNACKS AND REMAINED IN BED WITHOUT ANY DISTRESS. WILL CONTINUE TO MONITOR.
--- NOTE | 2024-05-15 18:13 | NUR ---
SHIFT SUMMARY PATIENT ALERT AND ORIENTED TO SELF. INCONTINENT OF BLADDER, REPOSITIONED Q 2 HOURS. RESTRAINTS REMOVED THIS MORNING AT 1100. PATIENT HAS BEEN PLEASANTLY CONFUSED, INTERMITTENTLY COMBATIVE WITH PERINEAL CARE. COOPERATIVE WITH ALL OTHER CARE PROVIDED. ATTEMPTED TO GET PATIENT TO RECLINER THIS MORNING FOR BREAKFAST WITH 2 STAFF MEMBERS, WALKER, AND GAITBELT. PATIENT NOT ABLET O FOLLOW DIRECTION AND UNABLE TO TRANSFER TO CHAIR. PATIENT RESISTED ASSISTANCE AND PUSHED HERSELF BACK INTO BED. DID NOT ATTEMPT TO GET PATIENT UP AGAIN DUE TO SAFETY CONCERNS. PUREWICK IN PLACE. PATIENT DENYING PAIN. PATIENT CONTINUES TO HAVE HEALTHY APPETITE, REQUESTING SNACKS THROUGHOUT THE DAY. PATIENT CONTINUES WITH CONFUSION, DISORIENTATION AND WORD SALAD AND NONSENSICLE SPEECH. NO OTHER CONCERNS.
--- NOTE | 2024-05-16 05:50 | NUR ---
SHIFT SUMMARY PT A&OI TO SELF AND IS CONFUSED AND UNABLE TO BE REORIENTED. PT MADE CONTINUAL ATTEMPTS TO LEAVE THE BED UNSUPERVISED, AND WAS NOT ABLE TO BE REDIRECTED. PHYSICIAN CALLED AND JO VEST APPLIED TO REDUCE FALL RISK AND MAINTAIN PT SAFETY. PT SPENT MOST OF THE NIGHT IN BED WITH RESPIRATIONS EVEN AND UNLABORED. NO ACUTE EVENTS AT THIS TIME. PT LEFT IN A POSITION OF SAFETY WITH BED IN LOWEST POSITION, BED ALARM ENABLED, JO IN PROPER POSITION, YELLOW FALL PRECAUTION GOWN ON PT, ROOM FREE OF DEBRIS, CALL LIGHT IN REACH. PT REPOSITIONED Q2 HRS.
[2024-05-16] MEDS ORDERED: HYDROcodone 5-APAP 325 TAB PO PRN (07:55)
[2024-05-16] MEDS ORDERED: OLANZapine ODT 10 MG Tab PO PRN (07:55)
[2024-05-16 14:48] VITALS: BP 106/74
[2024-05-16] MEDS ORDERED: OLANZapine ODT 10 MG Tab PO SCH (21:00)
--- NOTE | 2024-05-17 03:46 | NUR ---
SHIFT SUMMARY ADMITTED FOR UTI/SEPSIS, AFIB W/RVR. DNR CODE. ON COMFORT CARE. PLAN IS FOR GUARDIANSHIP/MEMORY CARE PLACEMENT. SHE IS A&O X SELF ONLY. SHE IS INCONTINENT. SHE IS NOT REDIRECTABLE. CONFUSED, HALLUCINATES. DR. VARGAS IS PSYCHIATRIC CONSULT. ON RA, FINGERFOOD DIET, HIGH FALL RISK.
--- NOTE | 2024-05-17 16:35 | NUR ---
PATIENT WAS ASLEEP WHEN I ROUNDED. DISCUSSED CASE WITH BEDSIDE RN. PT APPEARS COMFORTABLE AT THIS TIME.
--- NOTE | 2024-05-17 17:25 | NUR ---
SHIFT SUMMARY: PT ORIENTED TO SELF ONLY. PT BECOMES VERY ANXIOUS/AGITATED c PERSONAL CARE. STAFF FROM [facility] ARRIVED THIS SHIFT TO ASSESS PT. QUESTIONS ANSWERED TO THE BEST OF THIS RN'S KNOWLEDGE OF PT. Q2 ROTATIONS COMPLETED. PT ATTEMPTED OOB TWICE SO FAR THIS SHIFT. BED ALARM IN PLACE FOR SAFETY. AWAITING GUARDIANSHIP. CALL LIGHT IN REACH. BED IN LOWEST POSITION.
--- NOTE | 2024-05-18 04:27 | NUR ---
SHIFT SUMMARY: PT ALERT ORIENTED TO SELF. SLEPT MOST OF SHIFT THEN BECAME MORE RESTLESS AND AGITATED. ZYPREXA PRN WAS GIVEN AT 0343. INC OF BLADDER. BRIEF ON. REMAINS WITH REDNESS TO BUTTOCKS. KEPT TURNED. REMAINS ON RA. NO S/S RESP DISTRESS. NO C/O PAIN. WAITING ON GUARDIANSHIP. RESTING IN BED AT THIS TIME WITH BED ALARM ON AND SIDE RAILS UP WITH CALL PHILLIPS IN REACH.
--- NOTE | 2024-05-18 17:14 | NUR ---
SHIFT SUMMARY PT AO TO SELF, DOES NOT CALL. TALKS TO HERSELF THROUGHOUT THE DAY. CAN BE PLEASANT AND COOPERATIVE WHILE ALSO GETTING AGITATED. SHE IS USUALLY REDIRECTABLE. BA ON, CA ON WHEN UP IN THE CHAIR. SHE IS A 1 ASSIST TO THE CHAIR. CAN BE IMPULSIVE AND ATTEMPT TO GET OOB. HAS LOOKED COMFORTABLE ALL SHIFT. REPOSITIONED IN THE BED THROUGHOUT THE SHIFT, BUT PT DOES MOVE QUITE A BIT IN BED AND OFTEN RESPOSITIONS HERSELF ALSO. PT FEEDS HERSELF WELL AND EATS ALL OF HER MEALS. ALSO, SPOKE WITH A REP FROM [facility], ANSWERING QUESTIONS THAT THE PT COULD NOT REGARDING DAILY ADL'S. CALL LIGHT WITHIN REACH, BED LOCKED AND IN THE LOWEST POSITION. WILL REPORT TO ONCOMING NURSE.
[2024-05-18] MEDS ORDERED: HYDROcodone 5-APAP 325 TAB PO SCH (21:00)
--- NOTE | 2024-05-19 03:38 | NUR ---
SHIFT SUMMARY: PT ALERT ORIENTED TO SELF. VERY CONFUSED WITH WORD SLANG AND HALLUCINATIONS. INC OF BLADDER. REMAINS ON COMFORT CARE. SHE SLEPT MOST OF THE NIGHT. SHE WAS STARTED ON NORCO QHS. REMAINS ON RA AND IS SATTING GOOD. RESTING IN BED AT THIS TIME.
--- NOTE | 2024-05-19 17:00 | NUR ---
SHIFT SUMMARY PT AO TO SELF, 1 ASSIST TO THE CHAIR OR BSC. INCONTINENT, BRIEFS CHANGED NEEDED. PT IS IMPULSIVE AND DOES NOT USE THE CALL LIGHT. BA AND CA ARE ON WHEN APPLICABLE. SHE OFTEN DOES NOT ANSWER QUESTIONS CORRECTLY, WORD SALAD. TALKS IN HER SLEEP. CAME BY TO VISIT TODAY BUT SHE WAS SLEEPING. PT OFTEN GETS AGITATED WITH PERSONAL CARE. REPOSITIONED THROUGHOUT THE SHIFT. PT REMAINS ON COMFORT CARE. CALL LIGHT WITHIN REACH, BED LOCKED AND IN THE LOWEST POSITION. WILL REPORT TO ONCOMING NURSE.
--- NOTE | 2024-05-20 03:33 | NUR ---
SHIFT SUMMARY: PT ALERT ORIENTED TO SELF. REMAINS VERY CONFUSED WITH HALLUCINATIONS AND WORD SLANG. SLEPT MOST OF THE NIGHT WITH THE NORCO. REMAINS ON COMFORT CARE. INC OF B7B. HAD A BM THIS SHIFT. TAKES PILLS WHOLE. SLEPING AT THIS TIME WITH BED ALARM ON AND SIDE RAILS UP. REMAINS ON RA SATTING WELL.
[2024-05-20] MEDS ORDERED: Haloperidol 1 MG Tab PO PRN (12:30)
--- NOTE | 2024-05-20 15:59 | NUR ---
WORD SALAD, UNABLE TO CLEARLY MAKE NEEDS KNOWN, BECOMES ESCILATED WITH CONVERSATIONS AT TIMES, AGGRESSIVE AT TIMES, UNABLE TO REDIRECT OR ORIENT FOR INTERVENTIONS OR NEEDS, NO ACUTE CHANGES, COMFORT CARE, BED ALARM ON, CALL LIGHT WITH IN REACH
[2024-05-20 20:19] VITALS: BP 145/100
--- NOTE | 2024-05-21 14:35 | NUR ---
PATIENT'S AND DOG CAME AND VISITED, PATIETN ATE LUNCH, PATIENT REFUSED TO GET OOB TO CHAIR, UNABLE TO CLEARLY MAKE NEEDS KNOWN
--- NOTE | 2024-05-21 15:44 | NUR ---
REPOSITIONING, PATIENT REGULARLY REPOSITIONS SELF IN BED, PATIENT IS HARD TO REDIRECT FOR ASSISTANCE WITH CARE, SNORING LOUDLY NOW
--- NOTE | 2024-05-21 17:09 | NUR ---
pt comfortable, staff managing her labile behaviours well. Therputic time with pt reminising.
--- NOTE | 2024-05-21 17:41 | NUR ---
NO ACUTE CHANGES, WORD SALAD, PATIENT IS UNABLE TO MAKE NEEDS KNOWN, NONSENSICAL SPEECH, INCONTINENT, INDEPEDANT TO FEED SELF, VISUAL AND AUDITORIAL HALLUCINATIONS, MEDICATED WITH HALDOL X2, PATIENT MORE AGGITATED WITH STAFF AT TIMES TODAY, WILL RLEAY TO PM RN
--- NOTE | 2024-05-22 08:22 | NUR ---
PATIENT RESTING IN ROOM, WAKES EASILY AND THEN BACK TO SLEEP, BED ALARM ON.
--- NOTE | 2024-05-23 17:00 | NUR ---
SHIFT SUMMARY: COMFORT CARE PT. NO ACUTE CHANGES THIS SHIFT. MEDICATED PER EMAR WITH ANXIETY MEDICATIONS PT WAS ATTEMPTING OOB SEVERAL TIMES. Q2 TURNS COMPLETED. NO IV ACCESS. CALL LIGHT IN REACH. BED IN LOWEST POSITION WITH ALARM ON.
--- NOTE | 2024-05-24 05:30 | NUR ---
PT APPEARED TO TO SLEEP THROUGH THE , NIGHT TOOK HS MEDICATION WAS ABLE TO MAKE NEEDS KNOWN, WAS POLITE AND SOCIAL WITH STAFF AND RECEPTIVE TO CARE. BED IN LOW POSITION, RAILS TIMES TWO, CALL LIGHT WITHIN REACH.
--- NOTE | 2024-05-24 17:11 | NUR ---
SHIFT SUMMARY PT CONT WITH LEVEL OF CARE WITH NO ACUTE CHANGES NOTED. PT IS A&O TO SELF ONLY THIS SHIFT. PT NOTED TO BE TALKING TO PEOPLE, WHEN NOBODY WAS IN ROOM. PT TRANSFERED ASSIST X2 WITH GAITBELT THIS SHIFT TO CHAIR AND BACK TO BED. PT NOTED TO BE INCONT OF BLADDER THIS SHIFT. PT WAS GIVEN PRN MEDICATION PER EMAR FOR AGITATION X1 THIS SHIFT.
--- NOTE | 2024-05-25 05:54 | NUR ---
SHIFT SUMMARY NOC PT A/O TO SELF, DIFFICULT TO REDIRECT. WILL RESPOND YES TO ALL COMMANDS, BUT CAN NOT FOLLOW THEM. PT ON COMFORT CARE MEASURES. SCHEDULED PAIN RX AND AGITATION RX GIVEN AT BEDTIME. PT HAS SLEPT FOR MAJORITY OF SHIFT. PT DISCHARGE AWAITING MEDICAID AND [employer] APPROVAL FOR PLACEMENT AT [facility]. PT CURRENTLY RESTING WITH BED ALARM ON, BED IN LOWEST POSITION, AND CALL LIGHT WITHIN REACH.
[2024-05-25] MEDS ORDERED: Sod Phosphate/Sod Biphosphate 132 ML BTL PR ONE ×2 (15:45→17:20)
[2024-05-25] MEDS ORDERED: OLANZapine ODT 10 MG Tab MM ONE (15:50)
[2024-05-25] MEDS ORDERED: Docusate Sodium/Senna 1 Tab PO SCH (18:00)
[2024-05-25] MEDS ORDERED: Polyethylene Glycol 3350 17 gm PO SCH (18:00)
[2024-05-25] MEDS ORDERED: Magnesium Citrate 300 ML BTL PO ONE (18:00)
--- NOTE | 2024-05-25 19:40 | NUR ---
SHIFT SUMMARY PT HAS LARGE FECAL EMPACTION. DR. NEVILLE ATTEMPTED TO DISEMPACT PT AFTER 2 UNSUCSESSFUL ENEMAS. BOWEL CARE REGIMEN STARTED AND DR. NEVILLE WILL ATTEMPT AGAIN TOMORROW. PT COMMUNITATES WITH WORD SALAD. PLEASANT, VERY DIFFICULT TO REDIRECT. IMPULSIVE.
--- NOTE | 2024-05-26 04:10 | NUR ---
SHIFT SUMMARY PT STARTED EVENING SHOWING SIGNS OF ANXIETY. DIFFICULT TO REDIRECT. SPOKE IN WORD SALAD. WALKED INTO BATHROOM TO VOID AND STOOL. HAD SMALL BM. PT SETTLED INTO BED AND RELAXED. REFUSED EVENING MEDS STATING "WE'RE ALL FINE HERE." EDUCATED ON NEED FOR PAIN MEDS AND ANXIETY MEDS. PT STILL UNABLE TO PASS LARGE STOOL BLOCKAGE AT THIS POINT. PT SLEEPING WELL WITH INFREQUENT MOMENTS OF RESTLESSNESS. WOKE AT 0130. ATTENDS CHANGED, AND REQUESTING SNACKS. PT PLEASANT WHEN NOT ANXIOUS. APPROX 0320, PT UP TO BATHROOM, ABLE TO PASS SMALL, SOLID BM. ATTENDS CHANGED AND PT BACK IN BED. WILL CONTINUE TO MONITOR.
[2024-05-26] MEDS ORDERED: Magnesium Citrate 300 ML BTL PO ONE (10:00)
[2024-05-26 14:37] VITALS: BP 109/80
--- NOTE | 2024-05-26 16:40 | NUR ---
SHIFT SUMMARY COMFORT CARE, PT IS ALERT AND CONFUSED, COMMUNICATES USING WORD SALAD. PT IS COOPERATIVE WITH CARES AND STAFF. CURRENTLY SITTING UP EATING A SNACK. CHAIR ALARM ENGAGED. PT IS IMPULSIVE AND DIFFICULT TO REDIRECT AND DOES NOT OBEY COMMANDS. 1 PERSON STAND AND AMBULATE WITH FWW. NO BM THIS SHIFT. MULTIPLE BOWEL CARE MEDICATIONS ADMINISTERED WITH NO RESULTS. AFTER PT FINISHES SNACK, PLAN IS TO ADMIN SOAP ERIN ENEMA IN ATTEMPT TO BREAK UP STOOL.
--- NOTE | 2024-05-26 18:37 | NUR ---
soap enema administered, small amount of stool and water output
--- NOTE | 2024-05-27 04:19 | NUR ---
SHIFT SUMMARY PT ABLE TO HAVE 3 LARGE BM THIS SHIFT. STILL OVERESTIMATES HER ABILITIES. BUT MORE EASILY REDIRECTABLE THIS SHIFT. HAS BEEN SLEEPING OFF AN ON WITH DRY SNORING WHILE SLEEPING. LUNG SOUNDS CLEAR. WHILE AWAKE, HAS BEEN IN A PLEASANT MOOD AND HAS BEEN COOPERATIVE WITH CARE. WILL CONTINUE TO MONITOR.
[2024-05-27] MEDS ORDERED: Lactulose 20 GM/30 ML UDC PO ONE (10:00)
--- NOTE | 2024-05-27 16:43 | NUR ---
SHIFT SUMMARY PT RESTING QUIETLY AWAKE AT START OF SHIFT. ABLE TO SIT UPRIGHT IN BED AND EAT BREAKFAST. PT REMAINS VERY CONFUSED AND DOES NOT FOLLOW ANY COMMANDS. DR TEJEDA IN TO SEE PT; NEW ORDERS PLACED FOR LACTULOSE. PT TOOK LACTULOSE, WHEN SET IN FRONT OF HER. PT THEN STARTED HAVING THICK LIQUID EXLRG STOOLS. PT HAS BEEN INCONTINENT EACH TIME. PT FLOODED BED AND FLOOR AGAIN WITH STOOL, SEVERAL TIMES. PT PLACED ON BSC A COUPLE OF TIMES, EACH FOR A GOOD LENGTH OF TIME. PT ABLE TO GO A LRG AMT THEN WELL. IN TO VISIT FOR A SHORT WHILE WITH DOG. NO C/O PAIN. PT IS DIFFICULT TO CLEAN AND CHANGE SHE DOES NOT UNDERSTAND DIRECTIONS. SAT UP TO EOB TO EAT LUNCH. ABLE TO EAT AND DRINK WELL. BED ALARM ON FOR SAFETY. CALL LT IN REACH.
--- NOTE | 2024-05-28 03:55 | NUR ---
SHIFT SUMMARY: PT IS A 73 YO DNR/ COMFORT CARE PATIENT WHO IS CONFUSED AND DOES NOT FOLLOW DIRECTIONS WELL. PT MOSTLY RAMBLES ON AND DOES NOT ALWAYS ANSWER QUESTIONS APPROPRIATELY. PT HAS BEEN INCONTINENT A FEW TIMES THIS SHIFT IN BED AND DOES NOT USE HER CALL LIGHT. BED ALARM HAS TO BE SET ON PATIENT AT ALL TIMES. PT REALLY HAS ENJOYED PUDDING CUPS AND LEMONADE THROUGH OUT THE SHIFT. PT WAS PLEASANTLY CONFUSED TONIGHT AND GOT SOME REST.
--- NOTE | 2024-05-28 18:22 | NUR ---
SHIFT SUMMARY PATIENT ABLE TO AMBULATE IN ROOM WITH ONE ASSIST, REQUIRES EXTENSIVE REDIRECTING, UNABLE TO ADHERE TO SAFETY INSTRUCTIONS, NOT ORIENTED TO REALITY. ORIENTED TO SELF ONLY. INCONTINENT OF URINE, NO BM THIS SHIFT. NO C/O PAIN THIS SHIFT, DIFFICULT TO ASSESS, SPEAKS IN WORD SALAD. CALL LIGHT IN REACH, CHAIR ALARM ACTIVATED, BED LOW POSITION, CARES ONGOING.
--- NOTE | 2024-05-28 19:39 | NUR ---
AGITATED AT SHIFT COMMENCE, OOB, PUSHING AT STAFF AND YELLING. PO PRN OF HALDOL, AND HS MEDS GIVEN WITH JOAN PUDDING. WILL MONITOR
--- NOTE | 2024-05-29 04:55 | NUR ---
SHIFT SUMMARY PT AGITATED AT BEGINNING OF SHIFT. MEDICATED WITH PRN AND HS MEDS, AND PT SLEPT LONG PERIODS AFTERWARDS. UP WITH MINIMAL ASSIST, DOES NOT FOLLOW DIRECTION. INCONT. OF URINE. SIDERAILS UP X2, CALL LIGHT WITHIN REACH, BED ALARM ON.
[2024-05-29] MEDS ORDERED: QUEtiapine Fumarate 50 MG TAB PO PRN (14:50)
[2024-05-29] MEDS ORDERED: OLANZapine 10 MG Vial IM PRN (14:55)
--- NOTE | 2024-05-29 17:05 | NUR ---
SHIFT SUMMARY PATIENT A/O X SELF AND ONLY, NOT ORIENTED TO REALITY, SPEAKS WORD SALAD EXCEPT WHEN MAKING THREATS, SEVERAL EPISODES OF HITTING THIS SHIFT. REQUIRES EXTENSIVE VERBAL REDIRECTION FOR UNSAFE AND WANDERING BEHAVIORS, GENTLE PHYSICAL REDIRECTION APPEARS TO AGITATE HER. INCONTINENT OF URINE MOST TIMES. NO BM THIS SHIFT, BOWEL CARE GIVEN. EATING WELL, ACCEPTING OF MOST SNACKS AND DRINKS. CHANGES MADE TO PSYCH MEDS THIS SHIFT PER DR VARGAS ORDERS. GIVEN SEROQUEL, APPEARS LESS AGITATED. NOT ABLE TO MAKE NEEDS KNOWN. CALL LIGHT IN REACH, BED ALARM ON. CARES ONGOING.
[2024-05-29 19:30] VITALS: BP 124/63
[2024-05-29] MEDS ORDERED: QUEtiapine Fumarate 100 MG Tab PO SCH (21:00)
--- NOTE | 2024-05-30 05:49 | NUR ---
SHIFT SUMMARY PT RESTLESS, DIFFICULT TO REDIRECT AT START OF SHIFT. PT MEDICATED, THEN SLEEPING MOST OF SHIFT. INCONT. AT TIMES. NO SIGNS OF DISTRESS. BED ALARM ON, CALL LIGHT WITHIN REACH, SIDERAILS UP X2.
--- NOTE | 2024-05-30 16:44 | NUR ---
SHIFT NOTE: PT ALERT, NOT ABLE TO MAKE NEEDS KNOWN. SHE SPEAKS IN WORD SALAD WITH FREQUENT CURSING. SHE HAS VISUAL HALLUCINIATIONS AND IS DIFFICULT TO REDIRECT. SHE BECOMES PHYSICALLY COMBATIVE WITH CARE. MEDICATED WITH ZYPREXA FOR AGGITATION X1 THIS SHIFT. SHE HAS BEEN INC/CONT. SHE TOOK HER MEDS WHOLE WITH JOAN PUDDING. SHE IS EATING AND DRINKING IND. BALANCE WEIGHER RAJI UPDATED THIS SHIFT ([phone]). SHE HAS A BANDAGE ON HER RIGHT HAND C/D/I. AND DOG CAME FOR A VISIT TODAY. WILL CONTINUE TO MONITOR AND REPORT TO ONCOMING RN
--- NOTE | 2024-05-31 04:33 | NUR ---
SHIFT SUMMARY PT DIFFICULT TO REDIRECT. UNABLE TO MAKE NEEDS KNOWN. INCONT. DURING THE NIGHT. SLEPT LONG INTERVALS.
--- NOTE | 2024-05-31 07:47 | NUR ---
ASSUMED CARE OF PATIENT. CHART REVIEWED.
[2024-05-31 15:05] VITALS: BP 253/199
--- NOTE | 2024-05-31 17:55 | NUR ---
END OF SHIFT SUMMARY: ALERT, ORIENTED TO SELF, ONLY. EASILY AGITATED AND AGGRESSIVE, PARTICULARLY DURING PERSONAL CARE. DOES NOT USE CALL LIGHT. UNABLE TO ADVOCATE NEEDS EFFECTIVELY SECONDARY TO WORD SALAD AND NONSENSICAL SPEECH. INAPPROPRIATE LAUGHTER AND CAN BE HEARD SPEAKING TO HERSELF WHEN ALONE. CONSUMED 100% OF MEALS. VERY NONCOMPLIANT WITH PERSONAL CARE AND OFTEN SOILS ATTENDS DESPITE BEING CONTINENT AND KNOWING WHEN SHE NEEDS TO VOID SHE WILL SOMETIMES GET UP AND AMBULATE TO BATHROOM AND OTHER TIMES SOILS ATTENDS. BOWEL MOVEMENT THIS MORNING. MEDS WHOLE WITH CHOCOLATE PUDDING. BED IN LOWEST POSITION. CALL LIGHT WITHIN REACH. ALL NEEDS MET. REPORT TO ONCOMING NURSE.
[2024-05-31 19:57] VITALS: BP 145/100
[2024-05-31 20:17] VITALS: BP 115/92
--- NOTE | 2024-06-01 05:58 | NUR ---
SHIFT SUMMARY PT CALM MOST OF THE SHIFT, NO PRN MEDICATIONS NEEDED. NEEDS MUCH ENCOURAGEMENT TO GET OOB AND AMBULATE TO TOILET- DOES NOT FOLLOW DIRECTIONS WELL, SPEAKING IN WORD SALAD. UNABLE TO MAKE NEEDS KNOWN. INCONTINENT OF STRONG SMELLING URINE. DIFFICULT TO CHANGE BRIEFS DUE TO PT NOT COOPERATING. BED ALARM ON, CALLLIGHT WITHIN REACH. SIDERAILS UP X2.
--- NOTE | 2024-06-01 16:31 | NUR ---
SHIFT SUMMARY PT IS A/OX1, ORIENTED TO SELF. PT TALKING IN WORD SALAD. PT SELPT THROUGHOUT MOST OF THE SHIFT. GIVEN ONE DOSE OF PRN SEROQUEL THIS SHIFT. PT DEMONSTRATED AGGRESSION AND NOT COOPERATIVE DURING CHANGING OF BRIEFS. NO ACUTE EVENTS THROUGHOUT THE SHIFT. BED ALARM ON.
--- NOTE | 2024-06-02 04:08 | NUR ---
pt confused. affect pleasant. PT RESTING QUIETLY IN BED WITH EYES CLOSED THROUGH THE NIGHT. NO DISTRESS NOTED.
--- NOTE | 2024-06-02 16:37 | NUR ---
SHIFT SUMMARY PT IS A/OX1, ORIENTED TO SELF. PT TALKING IN WORD SALAD. NO ACUTE EVENTS THROUGHOUT THE SHIFT. PRN SEROQUEL GIVEN X2 THIS SHIFT. PT CONTINUES TO DEMONSTRATE AGGRESSION DURING CHANGING OF BRIEFS. PT UP TO CHAIR FOR MUCH OF THE AFTERNOON AND AMBULATES TO THE [facility] ONCE THIS SHIFT. PT IS CURRENTLY RESTING IN BED WITH THE BED ALARM ON.
--- NOTE | 2024-06-03 03:40 | NUR ---
PT AWAKE FREQUENTLY THROUGH THE NIGHT ANXIOUS AND INCONTINENT. PT MEDICATED FOR ANXIETY PER DR ORDERS. PT RESTING QUIETLY IN BED WITH EYES CLOSED AT THIS TIME. NO DISTRSS NOTED.
--- NOTE | 2024-06-03 12:53 | NUR ---
report received verified, a/o x 1 word salad, but pt has been very cooperative with care so far. pt up and down to chair and bed but has been in chair for meals. call light within reach and chair alarm active.
--- NOTE | 2024-06-03 18:10 | NUR ---
HAVING TROUBLE WITH PT HYGIENE, PT REFUSING TO ALLOW US TO CLEAN HER AFTER HAVING BM, EVERY ATTEMPT TO CLEAN IS MET WITH AGRESSION AND PT ATTEMPTING TO HIT. PT IS VERY CONFUSED AND DOESNT UNDERSTAND WHAT WE ARE TRYING TO DO, PRN MEDICATION IS SET ASIDE FOR AFTER DINNER IN HOPES THAT WE MAYBE ABLE TO CLEAN PT.
--- NOTE | 2024-06-04 12:53 | NUR ---
report received. pt doing better today has been laying in bed no agitation at this time, has been pleasent and following commands. pt allowed us to do full bed bath.
--- NOTE | 2024-06-04 18:33 | NUR ---
PT HAVING MULTIPLE BM THROUGHOUT THE DAY WAS VERY DIFFICULT TO CLEAN PT, CNAS WERE CALLED IN TO HELP WITH CHANGING. AFTER PT WAS CHANGED PT BECAME CALM AND COOPERATIVE AGAIN. OTHERWISE PT VERY PLEASENT ALWAYS EXPRESSING HER LOVE TO THE STAFF.
[2024-06-05 03:36] VITALS: BP 129/94
--- NOTE | 2024-06-05 18:04 | NUR ---
NON EVENTFUL DAY FOR PT, PT LAYED QUIETLY IN BED WAS MORE COOPERATIVE AND ALLOWED CHANGING WHEN NEEDED. SAT PT UP IN CHAIR FOR MEAL, CHAIR ALARM ON AND PT CALL LIGHT WITHIN REACH. PT DOES NOT USE CALL LIGHT SO CONSTANT MONIOTR IN NEEDED.
[2024-06-06 04:26] VITALS: BP 130/87
--- NOTE | 2024-06-06 05:05 | NUR ---
PATROL MAN PATIENT IS A&O TO SELF, VERY CONFUSED, VITALS ARE STABLE, ON ROOM AIR. PATIENT IS ON COMFORT CARE. PATIENT WAS INCONTINENT TWICE AND HAD A LARGE LOOSE BOWEL MOVEMENT IN BED.
--- NOTE | 2024-06-06 17:55 | NUR ---
SHIFT SUMMARY PT AO TO SELF, IMPULSIVE. BA ON. INCONTINENT, BRIEF CHANGED NEEDED. MEDICATED FOR AGITATION PER THE EMAR. 1 ASSIST TO THE CHAIR. PT HAS A GOOD APPETITE. AT THE BS THIS SHIFT AND UPDATED. REPOSITIONED THROUGHOUT THE SHIFT. CALL LIGHT WITHIN REACH, BED LOCKED AND IN THE LOWEST POSITION. WILL REPORT TO ONCOMING NURSE.
--- NOTE | 2024-06-07 17:54 | NUR ---
SHIFT SUMMARY PT AO TO SELF, MORE AGITATED THIS SHIFT. MEDICATED PER THE EMAR. PT UP IN THE CHAIR ALL SHIFT, TOLERATING IT WELL. CA ON. BM THIS SHIFT. NO COMPLAINTS BY THE PT, SHE HAS APPEARED COMFORTABLE. ADL'S TEND TO AGITATE THE PT. REPOSITIONED THROUGHOUT THE SHIFT. PT REMAINS ON COMFORT CARE. CALL LIGHT WITHIN REACH, BED LOCKED AND IN THE LOWEST POSITION. WILL REPORT TO ONCOMING NURSE.
[2024-06-08 07:48] VITALS: BP 124/96
--- NOTE | 2024-06-08 17:41 | NUR ---
SHIFT SUMMARY PATIENT A/OX1, EXPRESSIVE APHASIA, WORD SALAD, NO SIGNS OR SYMPTOMS OF PAIN THIS SHIFT. BECAME AGITATED THIS AFTERNOON, CALLING OUT AND RESTLESS IN BED, PRN ZYPREXA GIVEN PER OCT. INCONTINENT OF BOWEL AND BLADDER, PULL UP IN PLACE. ABLE TO AMBULATE IN HER ROOM WITH STAND BY ASSISTANCE FOR SAFETY. UP IN RECLINER FOR MEALS. NO OTHER CONCERNS.
--- NOTE | 2024-06-09 04:48 | NUR ---
Pt Ao x1, expressive apasia, word salad. Up in chair w/ CA, slept after bedtime meds however awoke, SBA w cueing for ADLS, slept around 2 am in bed BA Comfort care, Fall precautions in place. Call light wn reach.
[2024-06-09 06:45] VITALS: BP 137/101
--- NOTE | 2024-06-09 17:27 | NUR ---
SHIFT SUMMARY: NO EVENTS OR CHANGES WITH THE PATIENT THROUGHOUT THE SHIFT. SHE HAS HAD TWO EPISODES OF AGGITATION AND HARD TO REDIRECT. GETTING UP OUT OF BED/OR CHAIR AND WANDERING OUT INTO THE [facility] WAY AND TRYING TO GO INTO PATIENT ROOMS. PATIENT VERBALLY THREATENED TO HIT IF TOUCHED. PATIENT WET AND TRYING TO REDIRECT TO ROOM TO HELP HER CHANGE; THIS TASK WAS DIFFICULT TO COMPLETE DUE TO LACK OF COOPERATION FROM PATIENT. PATIENT SETTLED BACK INTO ROOM. SHE IS SITTING AT EDGE OF BED, BED ALARM SET, SHE IS EATING ICE CREAM. NO SIGNS OR SYMPTOMS OF DISTRESS, PLAN OF CARE ONGOING.
--- NOTE | 2024-06-10 04:18 | NUR ---
SHIFT SUMMARY PATIENT HAD NO ACUTE CHANGES. ON COMFORT CARE. ALERT TO SELF AND ONE ASSIST TO BR. AGITATED WHEN CHANGING HER ATTENDS. DENIES CHEST PAIN, SOB, AND N/V. SLEPT MOST OF THE SHIFT. NO IV ACCESS. CALL LIGHT IN REACH. BED IN LOWEST POSITION AND ALARM ACTIVATED. WILL CONTINUE TO MONITOR UNTIL DAY SHIFT NURSE ASSUMES CARE.
--- NOTE | 2024-06-10 17:03 | NUR ---
SHIFT SUMMARY PT A&OX1/2, NEEDS PERSUADING AT TIMES TO PERFORM TASKS. ALOT OF CONFUSION AND FLIGHT OF IDEAS THROUGHTOUT THE DAY. INCONTINEMT. IMPULSIVE, TOOK PO MEDS VERY WELL. BED IN LOWEST POSITION, CALL LIGHT WITHIN REACH.
--- NOTE | 2024-06-11 05:20 | NUR ---
Patient alert and oriented to self only this shift, resting comfortably in bed on room air. Patient moderately compliant with care, somewhat redirectable, incontinent of bladder in brief in bed overnight. Patient did not require PRN medications overnight.
--- NOTE | 2024-06-11 12:35 | NUR ---
PATIENT WAS SITTING UP TO THE SIDE OF THE BED. SHE APPEARS COMFORTABLE. RN REPORTED THAT SHE HAS BEEN HAVING REGULAR BM. PC WILL CONTINUE TO PROVIDE SUPPORT.
--- NOTE | 2024-06-11 17:11 | NUR ---
SHIFT SUMMARY PT A&OX1, HARD TO REDIRECT, CONFUSED. PT HAS BEEN AMBULATING MOST OF THE AFTERNOON WITH SBA PRECAUTION TO FALLS. BED/CHAIR ALARMS ARE UTILIZED. HAD BIG INCONTINENT STOOL ON FLOOR OF ROOM. WHEN STAFF TRIED TO CLEAN UP, PT WAS INTERFERING AND GETTING MORE AGITATED, NIRMALA RN MEDICATED PT WITH ZYPREXA IM. PT SEEMED TO CALM DOWN A BIT AFTERWARDS. BED IN LOWEST POSITION, CALL LIGHT WITHIN REACH.
--- NOTE | 2024-06-12 07:16 | NUR ---
Patient alert and oriented x1-2, impulsively wandering in room at beginning of shift. Patient incontinent of bladder in brief overnight, requiring two person max assist for cleaning in bed.
--- NOTE | 2024-06-12 19:54 | NUR ---
pt is on comfort care. she is alert and oriented to self only. at times cooperative with care, at times combative to staff and also biting herself. pt is incontinent, in attends. room air. good appetite. RN gave report to night nurse.
--- NOTE | 2024-06-13 06:40 | NUR ---
SUMMARY: PT A/O TO SELF ONLY. MOOD IS LABILE BUT SHE'S BEEN PLEASANT AND COOPERATIVE MOST OF NOCTE, CONTINUING TO COMMUNICATE W/CONFUSED SPEECH AND WORD SALAD. BED ALARM IS ON FOR FALL RISK AND IMPULSIVITY. SHE'S UP W/1PA TO TOILET AND REFUSED MIRALAX AFTER HAVING 2 BM'S ON DAY SHIFT. PRN AND SCHEDULED SEROQUEL RECEIVED AT HS PER EMAR. COMFORT MEASURES MAINTAINED. NO ACUTE CHANGES. WCTM AND REPORT TO DAY RN.
--- NOTE | 2024-06-13 16:02 | NUR ---
SUMMARY- PT ALERT TO SELF. SITTING UP IN CHAIR MOST OF THE DAY WITH CHAIR ALARM. TOLERATING FOOD AND FLUIDS. PT INCONT OF URINE AND HAD SM INCONT BM. PT SPEAKS NONSENSICAL, TANGENTIAL SPEECH. PT BECOMES AGGITATED OF STAFF DIRECT HER IN A GIVEN TASK OR DIRECTION, BECOMES RESISTANT AND REFUSES CARE. BECAME MORE AGGITATED THIS AFETERNOON, MEDICATED WITH SEROQUEL WHICH OFFERED SOME RELEIF. 4 STAFF TO AID IN CHANGING ATTENDS THIS AFTERNOON. AWAITING PLACEMENT, WILL REPORT TO NOC RN
--- NOTE | 2024-06-14 04:58 | NUR ---
SHIFT SUMMARY: Pt is admitted for sepsis and is a DNR. is alert but not able to make needs known due to word salad. ADLs have been a mix of SBA up to 2p depending on activity. No signs of pain noted. Is on routine pain management. Is currently on comfort care.
[2024-06-14 07:29] VITALS: BP 118/79
[2024-06-14 16:37] VITALS: BP 170/102
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
--- NOTE | 2024-06-14 22:31 | NUR ---
2007 PT WANDERING AROUND ROOM AND OCCASIONALLY INTO THE HALLWAY AND OTHER PATIENT'S ROOMS. DENIES ANY DISCOMFORT AT THIS TIME BUT STILL WANTED HER HS PAIN MED. NO OTHER APPARENT SIGNS OF DISTRESS. CALL LIGHT IS IN REACH. BED ALARM IS ON, CHAIR ALARM IS IN PLACE.
--- NOTE | 2024-06-14 22:33 | NUR ---
2200 PT LYING IN BED, EYES CLOSED, APPEARS TO BE RESTING. BREATHING IS EVEN, UNLABORED. NO APPARENT SIGNS OF DISTRESS. CALL LIGHT IS IN REACH. BED ALARM IS ON. PT CURRENTLY LYING WITH HEAD AT FOOT OF BED AND FEET AT HEAD OF BED.
--- NOTE | 2024-06-15 01:52 | NUR ---
0000 PT LYING IN BED, EYES CLOSED, APPEARS TO BE RESTING. BREATHING IS EVEN, UNLABORED, NO APPARENT SIGNS OF DISTRESS. CALL LIGHT IS IN REACH. BED ALARM IS ON.
--- NOTE | 2024-06-15 01:52 | NUR ---
PT SITTING ON EDGE OF BED, GAVE SEROQUEL AND SOME PUDDING AND ICE CREAM. NO APPARENT SIGNS OF DISTRESS. CALL LIGHT IS IN REACH. BED ALARM IS ON.
--- NOTE | 2024-06-15 06:12 | NUR ---
PT IS AAO TO SELF. ON RA. HEALING SKIN TEARS ON HANDS. REDNESS ON BOTTOM, USING CREAM. DENIED ANY DISCOMFORT FOR THIS THIS SHIFT. GOT RESTLESS AND WAS GIVEN A PRN DOSE OF SEROQUEL AT 0146. 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
--- NOTE | 2024-06-15 06:12 | NUR ---
0400 PT SITTING ON EDGE OF BED, NO APPARENT SIGNS OF DISTRESS. CALL LIGHT IS IN REACH. BED ALARM IS ON.
--- NOTE | 2024-06-15 06:31 | NUR ---
PT SITTING ON EDGE OF BED, NO APPARENT SIGNS OF DISTRESS. CALL LIGHT IS IN REACH. BED ALARM IS ON. NO OTHER CHANGES THIS SHIFT.
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
--- NOTE | 2024-06-15 17:04 | NUR ---
SHIFT SUMMARY PT A&OX1, COOPERATIVE FOR THE MOST PART. DID ALOT OF WALKING TODAY UP AND DOWN THE GOMEZ. THIS MORNING, PT RECEIVED IM ZYPREXA. LATER DOSED WITH SEROQUEL. CHANGED TO BE MORE CONTENT FOR THE DAY. BED IN LOWEST POSITION, CALL LIGHT WITHIN REACH.
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
--- NOTE | 2024-06-16 17:26 | NUR ---
SHIFT SUMMARY PT A&OX1, HAD RESTLESS EPISODES BUT REDIRECTABLE WITH TIME AND EFFORT. CONTINUALLY MEDICATED WITH SEROQUEL TO MANAGE EPISODES. PT HAD AGRESSIVE EPISODE WHERE PT PULLED GLOVE BOX OFF WALL AND MADE A MESS, WAS ABLE TO CALM PT DOWN TO HAVE A VISIT WITH FAMILY. BED IN LOWEST POSITION, CALL LIGHT WITHIN REACH.
--- NOTE | 2024-06-16 19:32 | NUR ---
PATIENT ASSISTED TO THE FLOOR PATIENT UP AMBULATING IN THE ROOM. PROOFING MACHINE OPERATOR PRESENT. PATIENT ATTEMPTED TO SIT IN CHAIR, UNSTEADY ON HER FEET AND STARTED TO FALL. PROOFING MACHINE OPERATOR ASSISTED PATIENT TO FLOOR. PROOFING MACHINE OPERATOR REPORTED PATIENT DID NOT HIT HER HEAD. PATIENT ASSESSED NO AREAS OF TENDERNESS OR PAIN. PATIENT ASSISTED OFF THE FLOOR WITH LIFT FOR SAFETY. PATIENT CONFUSED AND UNPREDICTABLE BEHAVIORS. PATIENT PLACED ON BED WITH LIFT. SKIN ASSESSED. NO AREAS OF REDNESS SEEN OR TENDERNESS. PATIENT MOVING ALL EXTREMETIES.
--- NOTE | 2024-06-17 06:45 | NUR ---
WEIGHT ANALYST SUMMARY
--- NOTE | 2024-06-17 10:18 | NUR ---
Am checks were performed by Nurse. Late callin to shift. When I arrived we got cleaned up and ready for the day. Up to recliner w chair alarm on. Fresh linens and gown, all grooming performed. Enjoying her Breakfast and coffee after R.N. admin meds and Treatments. Room fully cleaned and excess garbage and linens out. Rubio so far so requires slow calm soft Q's and sweet intent eye contact.
--- NOTE | 2024-06-17 17:31 | NUR ---
SHIFT SUMMARY NO SIGNIFICANT CHANGES TODAY. PT ORIENTED TO SELF ONLY. BEHAVIORS TREATED WITH SEROQUEL PO WITH PUDDING. CHAIR ALARM ACTIVE, BED IN LOWEST POSITION, CALL LIGHT WITHIN REACH.
--- NOTE | 2024-06-18 04:52 | NUR ---
MULTIPLE PRESSURE RIVETER OPERATOR SUMMARY PT DID NOT REQUIRE IM ZYPREXA THIS SHIFT. SHE REMAINS RESISTIVE TO CARES MOST OF THE TIME, BUT THIS SHIFT WAS NOT COMBATIVE AND TRING TO GET INTO OTHER PATIENTS ROOMS. SHE REFUSED TO HAVE HER BRIEF CHANGED SEVERAL TIMES AND THREATENED TO HIT SO SHE WAS LEFT ALONE AND THEN WE WOULD TRY AGAIN IN 30 MINUTES.
--- NOTE | 2024-06-18 12:01 | NUR ---
SOCIAL MEDIA ASSISTANT PATIENT BITING STAFF, IN GOMEZ NAKED, NOT REDIRECTABLE AT THIS TIME. ASSISTED BY 3 STAFF BACK TO CHAIR AND REDRESSED. ONCE IN CHAIR PATIENT STAYED WITH DISTRACTION OF CHOCOLATE PUDDING, ONCE FINISHED PATIENT CONTINUED TO RAPID SPEAK, CONTINUED USING CURSE WORDS AND MAKING UNSPECIFIC THREATS. ZYPREXA GIVEN PER OCT. IN CHAIR WITH ALARM SET AT THIS TIME.
--- NOTE | 2024-06-18 18:15 | NUR ---
MEDICATED PER MAR, PATIENT HITTING, BITING, WALKING IN HALLS WITHOUT GOWN, NOT EASILY REDIRECTED. BECOMES MORE AGGRESSIVE WITH ATTEMPTED REDIRECTION.
--- NOTE | 2024-06-18 18:17 | NUR ---
SHIFT SUMMARY PATIENT A/O X1, SPEAKING WORD SALAD BUT CLEAR PROFANITIES USED CORRECTLY. CUSSING AT STAFF, HITTING, BITING, WALKING IN GOMEZ WITHOUT GOWN OR OTHER CLOTHING. MEDICATED PER MAR SEVERAL TIMES WITH MINIMAL CHANGE TO MOOD/BEHAVIORS. NOT REDIRECTABLE. NO IV ACCESS. COMFORT CARE. DOESN'T USE CALL LIGHT, NOT ABLE TO MAKE NEEDS KNOWN. CARES ONGOING
--- NOTE | 2024-06-19 04:12 | NUR ---
SHIFT SUMMARY PT IS COMFORT CARE MEASURES ONLY. PT ALERT, ORIENTED TO SELF. PT REFUSED PO SCHEDULED HS MEDICATIONS. WORDSALAD. NO ACUTE EVENTS DURING THIS SHIFT. PT SITTING IN THE RECLINER T/O THIS SHIFT. AWAKE MOST OF THIS SHIFT. REFUSING CARE.
--- NOTE | 2024-06-19 09:49 | NUR ---
MEDICATED PER MAR FOR AGGRESSIVE BEHAVIORS THIS AM. HITTING STAFF AND SWATTING AT STAFF WHEN STAFF BACKED AWAY TO SAFE DISTANCE.
--- NOTE | 2024-06-19 16:47 | NUR ---
SHIFT SUMMARY PATIENT CONTINUES WITH BEHAVIORS OF HITTING AND ATTEMPTING TO BITE, VERBALLY COLORFUL TOWARD STAFF. WORD SALAD PERSISTS. TAKES MEDS WELL WITH CHOCOLATE PUDDING. SEVERAL INCONTINENT URINE EPISODES, DIFFICULT TO CONVINCE OF NEEDING TO CHANGE BRIEF. CALL LIGHT IN REACH, DOESN'T USE. NOT ABLE TO MAKE NEEDS KNOWN. CARES ONGOING.
--- NOTE | 2024-06-20 03:10 | NUR ---
SHIFT SUMMARY COMFORT CARE MEASURES. HELD HS PO MEDICATIONS PER NURSING JUDGMENT D/T ASPIRATION RISK WHEN PT RESTING IN BED, RR EVEN, UNLABORED. PT ALLOWED PERSONAL CARE/CHANGE OF ATTENDS. NO ACUTE EVENTS DURING THIS SHIFT. BED AT THE LOWEST POSITION, BED ALARM FOR SAFETY. PT IS A&O X1 TO SELF ONLY. WORDSALAD.
--- NOTE | 2024-06-20 19:48 | NUR ---
END OF SHIFT SUMMARY: A&O TO SELF ONLY. NONCOMPLIANT AND UNCOOPERATIVE WITH CARE. DOES NOT CALL. BED ALARM FOR IMPULSIVENESS. INCONTINENT OF BOWEL AND BLADDER. BOTH HOSTILE AND HYPERSEXUALLY AGGRESIVE WITH BOTH MALE AND FEMALE STAFF MEMBERS DURING PROVISION OF CARE. MEDS CRUSHED IN CHOCOLATE PUDDING. ENJOYS SNACKS AND COFFEE. AWAITING PAYEE FOR PLACEMENT TO [facility]. BED IN LOWEST POSITION. CALL LIGHT WITHIN REACH. ALL NEEDS MET. REPORT TO ONCOMING NURSE.
--- NOTE | 2024-06-21 05:19 | NUR ---
ADMITTED 04/28/24: END STAGE DEMENTIA. COMFORT CARES PROVIDED. ORIENTED TO SELF AT TIMES, WORD SALAD. INCONTINENT OF URINE AND BOWELS. PILLS IN APPLESAUCE, ONE AT A TIME. AFTER INITIAL YELLING AND CURSING AT BEGINING OF SHFIT, PT SLEEP MOST OF THE NIGHT. DC PLAN: LTC, HOSPICE
--- NOTE | 2024-06-21 18:16 | NUR ---
END OF SHIFT SUMMARY: ALERT, BUT NOT ORIENTED. VERBALLY, PHYSICALLY AND SEXUALLY AGGRESSIVE WITH STAFF DURING KLAUS CARE. BM x2 TODAY. SPENT THE DAY IN THE BED, ONLY SITTING UP TO EAT. PRN QUETIAPINE x2 FOR AUDITORY AND VISUAL HALLUCINATION. FREQUENT COMMENTS OF GRANDIOSE DELUSIONS. IN TO SEE HER WITH THEIR DOG TODAY, BUT LEFT SHORTLY AFTERWARDS DUE TO HER VERBAL AGGRESSION TOWARD HIM. WORD SALAD AND MOST OF WHAT SHE SAYS IS NONSENSICAL. NO C/O PAIN OR DISCOMFORT ASIDE FROM NOT WANTING TO PARTICIPATE IN ADLs. MEDS CRUSHED IN CHOCOLATE PUDDING. INCONTINENT OF BOWEL AND BLADDER. AWAITING PAYEE FOR PLACEMENT AT [facility] ON HOSPICE CARE. BED IN LOWEST POSITION. CALL LIGHT WITHIN REACH. ALL NEEDS MET. REPORT TO ONCOMING NURSE.
--- NOTE | 2024-06-22 05:49 | NUR ---
SHIFT SUMMARY PT ALERT TO SELF. NON SENSICAL SPEACH. LIABLE MOOD BUT COOPERATIVE OF CARE THIS SHIFT. NO ACUTE CHANGES. MEDICATED PER EMAR FOR PAIN. PT ABLE TO SLEEP MOST OF THE NIGHT. BED ALARM ON. BED IN LOWEST POSITION AND CALL LIGHT IN REACH.
--- NOTE | 2024-06-22 10:40 | NUR ---
PATIENT ATE BREAKFAST, NO DISTRESS, RESP EVEN AND NONLABORED, RESTING NOW, REFUSED TO BE CLEANED, BED ALARM ON
--- NOTE | 2024-06-22 17:09 | NUR ---
NO ACUTE CHANGES, PATIENT CONTINUES TO TRY AND BITE AND SCRATCH STAFF WHILE PROVIDING KLAUS CARE. PATIENT ATE ALL THREE MEALS, NONSENSICAL SPEECH, UNABLE TO REORIENTED OR CONSOLE, MEDS CRUSHED IN PUDDING, PATIENT REPOSITIONS SELF IN BED, AUDITBLE AND VISUAL HALLUCINATIONS. BED ALARM ON, WILL RELAY TO PM RN
--- NOTE | 2024-06-23 05:47 | NUR ---
SHIFT SUMMARY PT ALERT TO SELF. NO ACUTE CHANGES. SLEPT T/O NIGHT. TAKES MEDS CRUSHED IN CHOCOLATE PUDDING. NON SENSICAL SPEACH AND UNABLE TO ADVOCATE NEEDS. BED ALARM ON. BED IN LOWEST POSITION AND CALL LIGHT IN REACH.
--- NOTE | 2024-06-23 14:24 | NUR ---
PATIENT WAS SITTING UP IN BED UPON MY ROUNDS, SHE WAS TALKING TO HERSELF. BEDSIDE RN REPORTED THAT SHE HAS INTERMITENT EPISODE OF VISUAL AND AUDITORY HALLUCINATIONS. PC WILL CONTINUE TO MONITOR
--- NOTE | 2024-06-23 17:58 | NUR ---
NO CHANGES, PATIENT CONTINUES TO HAVE NONSENSICAL SPEECH WITH AUDITORY AND VISUAL HALLUCINATIONS. BED ALARM ON, PRN SEROQUEL USED ONCE, WILL RELAY TO PM RN
--- NOTE | 2024-06-24 07:34 | NUR ---
LINING STUFFER SUMMARY NO ACUTE CHANGES. PT A/OX TO SELF. REMAINS DIFFICULT TO REDIRECT. NON SENSICAL TALKING. BED ALARM IN PLACE. CALL LIGHT ACCESSIBLE. PT TOOK MEDS CRUSHED IN PUDDING. HEAVY URINARY INCONT.
--- NOTE | 2024-06-24 15:47 | NUR ---
SHIFT SUMMARY PT RESTING QUIETLY AT START OF SHIFT. WOKE EASILY FOR CARE. PT HAS BEEN AWAKE MOST OF THE DAY, TALKING TO HER SELF. DR FLORES HERE THIS AM TO SEE PT. NO C/O PAIN. NO S/SX OF DISTRESS NOTED OR REPORTED. PT ON COMFORT CARE, WAITING PLACEMENT. NO ACUTE CHANGES TO PRESENT THIS SHIFT. CALL LT IN REACH. BED ALARM ON FOR SAFETY.
--- NOTE | 2024-06-25 05:06 | NUR ---
SENIOR NAVAL PARACHUTIST SUMMARY PT A&O X1 TO SELF. PT VERBAL WITH WORD SALAD NONSENICAL SPEECH. PT NEEDS ARE ANTICIPATED SHE IS UNABLE TO MAKE NEEDS KNOWN TO STAFF. PT NOTED TO HAVE VISUAL HALLUCINATIONS. PT HAS BEEN COOPERATIVE WITH CARE. NO ACUTE CHANGES NOTED. PT IS ON SCHEDULED PAIN MEDICATION; NO S/S OF PAIN NOTED. BED IN LOW POSITION. BED ALARM ON FOR SAFETY.
--- NOTE | 2024-06-25 07:59 | NUR ---
THIS RN REVIEWED GAS TURBINE MECHANIC/ORIENTEE COMFORT ASSESSMENTS AND DOCUMENTATION. RN AGREES WITH DOCUMENTATION.
--- NOTE | 2024-06-25 17:24 | NUR ---
Pt resting in bed throughout shift, appears comfortable, no complains of pain or discomfort. Pt oriented to self only. On comfort care awaiting placement. Pt talking to herself, but pleasant and compliant with care.
--- NOTE | 2024-06-26 05:56 | NUR ---
CHUTE TENDER SUMMARY PT MOSTLY COOPERATIVE WITH CARE. PT UNABLE TO MAKE NEEDS KNOWN. CALL LIGHT ACCESSIBLE AND BED ALARM IN PLACE. REGULAR INTERVAL ROUNDING TO ASSESS NEEDS T/O THE SHIFT. NEEDS MET.
--- NOTE | 2024-06-26 18:17 | NUR ---
Pt quiet and mostly cooperative with care. No complaints of pain, pt rested majority of shift with periods of talking to herself, answers questions, oriented to self only. Frequent rounding to assess pt needs, call light in reach, bed alarm on.
--- NOTE | 2024-06-27 04:34 | NUR ---
EMPLOYMENT LAW SPECIALIST SUMMARY NO ACUTE CHANGES. PT INTERMITTANTLY COOPERATIVE. NEEDS ASSESSED AND MET T/O THE NIGHT. BRIEF CHANGES NEEDED. PT HAS NOT BEEN ATTEMPTING OOB. FOOD AND FLUIDS ENCOURAGED WHEN AWAKE. REGULAR INTERVAL ROUNDING COMPLETED AT LEAST EVERY TWO HOURS. CALL LIGHT ACCESSIBLE AND BED ALARM IN PLACE.
--- NOTE | 2024-06-27 18:29 | NUR ---
PT MOSTLY PLEASANT TODAY. SOME IRRATIONAL AND INAPPROPRIATE TALK SOME NAME CALLING. NO VISITORS NOTED TODAY. PT SLEEPING MUCH OF DAY. NO C.O PAIN. NO NW CONCERNS NOTED. PENDING PLACEMENT. BED IN LOW POSITIOIN, CALL LITE IN REACH, CALLS APPROP
--- NOTE | 2024-06-28 06:22 | NUR ---
FOREIGN LANGUAGE INTERPRETER SUMMARY PT A/OX TO SELF. PT HAS BEEN IN BED T/O THE NIGHT; PT HAS NOT BEEN OUT OF BED FOR THE LAST 4-5 DAYS. URINE IF CONCENTRATE DARK YELLOW AND STRONG ODOR. CONCERN FOR POSIBBLE UTI. DECREASE IN ENERGY AND MENTATION NOTED OVER PAST FEW DAYS. NOTIFIED HOSPITALIST OF CONCERN FOR UTI. PT IS ON [id number] CARE. PT HAS NOT COMPLAINED OF PAIN OR APPEARED TO BE UNCOMFORTABLE. NO NEW ORDER AT THIS TIME TO SCREEN/TX FOR UTI. PT CALL LIGHT ACCESSIBLE. BED ALARM IN PLACE. REGULAR INTERVAL ROUNDING COMPLETE TO ASSESS NEEDS/COMFORT.
[2024-06-28] MEDS ORDERED: Nicoderm Cq1 EACH TOP (09:38)
[2024-06-28] MEDS ORDERED: DOCUZEN 8.6-501 EACH PO (09:38)
[2024-06-28] MEDS ORDERED: Norco 5-325 Ta1 EACH PO (09:39)
[2024-06-28] MEDS ORDERED: MIRALAX17 GM PO (09:39)
[2024-06-28] MEDS ORDERED: QUET100 PO (09:39)
[2024-06-28] MEDS ORDERED: Seroquel Xr50 MG PO (09:40)
--- NOTE | 2024-06-28 11:05 | NUR ---
PT PLEASANT WITH REGULAR OUTBURSTS OF WORD SALAD. MOSTLY INAPPROPRIATE TALK. DOES ALLOW TO BE CHANGED. FAMILY BROUGHT IN CLOTHES RECENTLY FOR TRANSPORT.
--- NOTE | 2024-06-28 14:24 | NUR ---
PT DISCHARGED TO [facility]. NO IV, NO TELE. PT COMFORT CARE. PT WHEELED TO DOOR AT 1425
== END 2024-06-28 14:23 | disposition home or self-care (01) | DRG 871 ==
LOC: ER 21:08 → PCU 21:09 → MEDS 04-28 13:39 → PCU 04-28 13:40 → MEDS 04-29 00:52
PROVIDERS: Emergency Medicine; Family Medicine; ADMIT Internal Medicine
DX: A41.9 Sepsis, unspecified organism (principal); G92.8 Other toxic encephalopathy; N17.9 Acute kidney failure, unspecified; E87.1 Hypo-osmolality and hyponatremia; N39.0 Urinary tract infection, site not specified; F03.918 Unspecified dementia, unspecified severity, with other behavioral disturbance; E87.0 Hyperosmolality and hypernatremia; E87.20 Acidosis, unspecified; Z51.5 Encounter for palliative care; Z66 Do not resuscitate; I12.9 Hypertensive chronic kidney disease with stage 1 through stage 4 chronic kidney disease, or unspecified chronic kidney disease; N18.30 Chronic kidney disease, stage 3 unspecified; F17.210 Nicotine dependence, cigarettes, uncomplicated; E86.0 Dehydration; R65.20 Severe sepsis without septic shock; I48.0 Paroxysmal atrial fibrillation; R31.9 Hematuria, unspecified; Z74.1 Need for assistance with personal care; R29.6 Repeated falls; R73.9 Hyperglycemia, unspecified; K56.41 Fecal impaction; Z91.030 Bee allergy status; Z90.710 Acquired absence of both cervix and uterus
CPT/HCPCS: 0241U; 70450; 71045; 80053; 80320; 81001; 82947; 83605; 83735; 84443; 84484; 85025; 85027; 87040; 87077; 87086; 87186; 93005; 93010; 96365; 96368; 96376; 97165; 99285-25; A9270; G0378; J0696; J1630; J2060; J7030; J7050; J7070; P9612

== ENCOUNTER 2024-07-07 19:02 | Emergency (ER) | payer OTHER ==
[~2024-07-07] VITALS: Ht 177.8 cm; Wt 81.7 kg
[~2024-07-07 19:02] MED LIST changes: +DOCUZEN 8.6-501 EACH PO; +MIRALAX17 GM PO; -NS 1,000 ML IV SCH; +Nicoderm Cq1 EACH TOP; +Norco 5-325 Ta1 EACH PO; +QUET100 PO; +Seroquel Xr50 MG PO
[2024-07-07 19:06] VITALS: BP 157/86
== END 2024-07-08 02:01 | disposition home or self-care (01) ==
LOC: ER 19:02
DX: S50.01XA Contusion of right elbow, initial encounter (principal); S09.90XA Unspecified injury of head, initial encounter; F03.90 Unspecified dementia, unspecified severity, without behavioral disturbance, psychotic disturbance, mood disturbance, and anxiety; I12.9 Hypertensive chronic kidney disease with stage 1 through stage 4 chronic kidney disease, or unspecified chronic kidney disease; N18.9 Chronic kidney disease, unspecified; I48.91 Unspecified atrial fibrillation; F17.210 Nicotine dependence, cigarettes, uncomplicated; Z91.030 Bee allergy status; Z79.899 Other long term (current) drug therapy; Z59.89 Other problems related to housing and economic circumstances; W18.30XA Fall on same level, unspecified, initial encounter
CPT/HCPCS: 70450; 73080; 99284-25

== ENCOUNTER → 2024-08-26 | Outpatient (CLI) | payer OTHER ==
[~2024-08-26] MED LIST changes: +NITR100CA PO
[2024-08-26 12:28] LABS: Source, Urine Clean Catch
[2024-08-26 13:09] LABS: Appearance, Urine Cloudy (Clear); Bilirubin, Urine Neg (Neg); Blood, Urine 1+ (Neg); Glucose Qualitative, Urine Neg (Neg); Ketones, Urine Neg (Neg); Leukocyte Esterase, Urine 3+ (Neg); Nitrite, Urine Pos (Neg); Protein, Urine 1+ (Neg); Specific Gravity, Urine 1.015 (1.003-1.022); Urobilinogen, Urine NORM (Normal)
[2024-08-26 13:44] LABS: Color, Urine Pale Yellow (P-Yellow)
[2024-08-26 13:45] LABS: White Blood Cells, Urine 25-50 /hpf (0-5)
[2024-08-26 13:46] LABS: Bacteria Many /hpf; Squamous Epithelial Cells Few /hpf (Few)
== END ==
LOC: LAB SHORT 11:00 → LAB 11:00
PROVIDERS: Physician Assistant
DX: N39.0 Urinary tract infection, site not specified (principal)
CPT/HCPCS: 81001; 87077; 87086; 87186

== ENCOUNTER 2024-08-31 09:15 | Emergency (ER) | payer OTHER ==
[~2024-08-31] VITALS: Ht 162.6 cm; Wt 95.2 kg
[~2024-08-31 09:15] MED LIST changes: -NITR100CA PO
[2024-08-31] MEDS ORDERED: NITR100CA PO (11:00)
[2024-08-31 11:06] LABS: BASOPHILS ABSOLUTE AUTO 0.02 K/mm3 (0.00-0.23); BASOPHILS PERCENT AUTO 0 % (0-2); EOSINOPHILS PERCENT AUTO 0 % (0-6); Hematocrit 39.8 % (33.0-51.0); Hemoglobin 12.9 g/dL (11.5-16.0); IMMATURE GRAN ABSOLUTE AUTO 0.03 K/mm3 (0.00-0.10); IMMATURE GRAN PERCENT AUTO 0 % (0-1); LYMPHOCYTES ABSOLUTE AUTO 0.88 K/mm3 (0.84-5.20); LYMPHOCYTES PERCENT AUTO 10 % (21-46); MONOCYTES ABSOLUTE AUTO 0.76 K/mm3 (0.16-1.47); MONOCYTES PERCENT AUTO 8 % (4-13); Mean Corpuscular HGB 29.1 pg (26.0-34.0); Mean Corpuscular HGB Conc 32.4 g/dL (31.5-36.5); Mean Corpuscular Volume 90 fL (80-100); Mean Platelet Volume 10.3 fL (9.1-12.4); NEUTROPHILS ABSOLUTE AUTO 7.61 K/mm3 (1.96-9.15); NEUTROPHILS PERCENT AUTO 82 % (41-73); Platelet Count 286 K/mm3 (150-400); RDW Coefficient Variation 13.8 % (11.7-14.2); RDW Standard Deviation 45.3 fL (35.1-46.3); Red Blood Cell Count 4.43 M/mm3 (3.80-5.20)
[2024-08-31 11:19] LABS: Bun/Creatinine Ratio 25.8 (12.0-20.0); Calcium, Blood 8.8 mg/dL (8.5-10.1); Creatinine, Blood 0.89 mg/dL (0.40-1.00); Potassium, Blood 4.8 mmol/L (3.5-5.5)
[2024-08-31 12:15] VITALS: BP 134/85
== END 2024-08-31 13:28 | disposition home or self-care (01) ==
LOC: ER 09:15
PROVIDERS: Student in an Organized Health Care Education/Training Program
DX: N39.0 Urinary tract infection, site not specified (principal); B95.2 Enterococcus as the cause of diseases classified elsewhere; I12.9 Hypertensive chronic kidney disease with stage 1 through stage 4 chronic kidney disease, or unspecified chronic kidney disease; N18.9 Chronic kidney disease, unspecified; I48.91 Unspecified atrial fibrillation; F03.90 Unspecified dementia, unspecified severity, without behavioral disturbance, psychotic disturbance, mood disturbance, and anxiety; F17.210 Nicotine dependence, cigarettes, uncomplicated
CPT/HCPCS: 36415; 80048; 85025; 99285

== ENCOUNTER 2025-04-28 10:37 | Inpatient (IN) | payer OTHER ==
[~2025-04-28] VITALS: Ht 170.2 cm; Wt 87.1 kg
[~2025-04-28 10:37] MED LIST changes: +NITR100CA PO
[2025-04-28] MEDS ORDERED: ACET500 (11:31)
[2025-04-28] MEDS ORDERED: QUET100 PO (11:31)
[2025-04-28] MEDS ORDERED: OLAN10 PO ×2 (11:32→11:33)
[2025-04-28] MEDS ORDERED: QUETIAPINE FUMA50 M2 PO (11:34)
[2025-04-28] MEDS ORDERED: SENNA LAXATIVE8.6 MG PO (11:34)
[2025-04-28] MEDS ORDERED: CefTRIAXone Sodium 1,000 MG in NS 100 ML IV ONE (11:35)
[2025-04-28] MEDS ORDERED: NS 1,000 ML IV SCH (11:35)
[2025-04-28 11:41] LABS: Source, Urine Foley catheter
[2025-04-28 11:44] LABS: Bilirubin, Urine Neg (Neg); Color, Urine Yellow (P-Yellow); Glucose Qualitative, Urine Neg (Neg); Ketones, Urine Neg (Neg); Leukocyte Esterase, Urine 3+ (Neg); Protein, Urine 2+ (Neg); Specific Gravity, Urine 1.020 (1.003-1.022); Urobilinogen, Urine NORM (Normal)
[2025-04-28 11:51] LABS: White Blood Cells, Urine 50-100 /hpf (0-5)
[2025-04-28 11:53] LABS: Red Blood Cells, Urine 25-50 /hpf (0-2)
[2025-04-28 12:23] LABS: BASOPHILS ABSOLUTE AUTO 0.03 K/mm3 (0.00-0.23); BASOPHILS PERCENT AUTO 0 % (0-2); EOSINOPHILS ABSOLUTE AUTO 0.02 K/mm3 (0.00-0.68); EOSINOPHILS PERCENT AUTO 0 % (0-6); Hematocrit 39.5 % (33.0-51.0); Hemoglobin 12.6 g/dL (11.5-16.0); IMMATURE GRAN ABSOLUTE AUTO 0.10 K/mm3 (0.00-0.10); IMMATURE GRAN PERCENT AUTO 1 % (0-1); LYMPHOCYTES ABSOLUTE AUTO 1.16 K/mm3 (0.84-5.20); LYMPHOCYTES PERCENT AUTO 16 % (21-46); MONOCYTES ABSOLUTE AUTO 1.49 K/mm3 (0.16-1.47); MONOCYTES PERCENT AUTO 21 % (4-13); Mean Corpuscular HGB Conc 31.9 g/dL (31.5-36.5); Mean Corpuscular Volume 92 fL (80-100); NEUTROPHILS ABSOLUTE AUTO 4.34 K/mm3 (1.96-9.15); NEUTROPHILS PERCENT AUTO 61 % (41-73); NRBC ABSOLUTE 0.00 K/mm3 (0.00-0.02); NRBC Auto 0.0 /100 WBC (0.0-0.2); Platelet Count 237 K/mm3 (150-400); RDW Coefficient Variation 15.2 % (11.7-14.2); RDW Standard Deviation 50.4 fL (35.1-46.3)
[2025-04-28 12:59] LABS: Alanine Aminotransfer (ALT/SGP 30.0 U/L (12-78); Albumin, Blood 3.4 g/dL (3.4-5.0); Albumin/Globulin Ratio 0.8 (0.8-1.8); Anion Gap 11.0 mmol/L (3-11); Aspartate Aminotrans (AST/SGOT 30.0 U/L (12-37); Bilirubin, Total 0.3 mg/dL (0.1-1.0); Blood Urea Nitrogen 15.0 mg/dL (8-24); CO2, Blood 23.0 mmol/L (21-32); Calcium, Blood 8.8 mg/dL (8.5-10.1); Chloride, Blood 107.0 mmol/L (98-108); Creatinine, Blood 0.9 mg/dL (0.40-1.00); Globulin, Blood 4.3 g/dL (2.2-4.0); Glucose, Blood 124.0 mg/dL (70-99); Potassium, Blood 4.0 mmol/L (3.5-5.5); Sodium, Blood 137.0 mmol/L (136-145); Total Protein, Blood 7.7 g/dL (6.4-8.2)
[2025-04-28 15:05] VITALS: BP 154/97
--- NOTE | 2025-04-28 20:19 | NUR ---
SHIFT SUMMARY- PT ADMITTED THROUGH THE ED. BEDSIDE REPORT COMPLETED WITH NIGHT RN. ADMISSION ASSESSMENT COMPLETED. PT HAD A JANG PLACED IN ED FOR RETENTION. JANG IN PLACE PATENT AND DRAINING AT THE TIME OF BEDSIDE REPORT. NO S&S OF DISTRESS NOTED.
[2025-04-28] MEDS ORDERED: Lactobacil 2-S.Thermo-Bifido 1 1 Cap PO SCH (21:00)
[2025-04-28 21:50] VITALS: BP 144/107
[2025-04-29 05:16] LABS: BASOPHILS ABSOLUTE AUTO 0.04 K/mm3 (0.00-0.23); BASOPHILS PERCENT AUTO 1 % (0-2); EOSINOPHILS ABSOLUTE AUTO 0.01 K/mm3 (0.00-0.68); EOSINOPHILS PERCENT AUTO 0 % (0-6); Hematocrit 39.9 % (33.0-51.0); Hemoglobin 13.0 g/dL (11.5-16.0); IMMATURE GRAN ABSOLUTE AUTO 0.05 K/mm3 (0.00-0.10); IMMATURE GRAN PERCENT AUTO 1 % (0-1); LYMPHOCYTES ABSOLUTE AUTO 1.07 K/mm3 (0.84-5.20); LYMPHOCYTES PERCENT AUTO 15 % (21-46); MONOCYTES ABSOLUTE AUTO 1.54 K/mm3 (0.16-1.47); MONOCYTES PERCENT AUTO 21 % (4-13); Mean Corpuscular HGB Conc 32.6 g/dL (31.5-36.5); Mean Corpuscular Volume 90 fL (80-100); NEUTROPHILS ABSOLUTE AUTO 4.51 K/mm3 (1.96-9.15); NEUTROPHILS PERCENT AUTO 63 % (41-73); NRBC ABSOLUTE 0.00 K/mm3 (0.00-0.02); NRBC Auto 0.0 /100 WBC (0.0-0.2); Platelet Count 215 K/mm3 (150-400); RDW Coefficient Variation 15.0 % (11.7-14.2); RDW Standard Deviation 49.2 fL (35.1-46.3)
--- NOTE | 2025-04-29 05:33 | NUR ---
SHIFT SUMMARY PT IS ALERT AND ORIENTED TIMES SELF . PT ADMITTED FOR SEPSIS.. PT AT TIMES HAS VERBAL OUTBURSTS. PT CURRENTLY IS NPO. PT HAD CRITICAL LACTIC ACID LEVEL 2.8. NOTIFIED SAP PORTAL CONSULTANT. PT IS RESIDENT OF [facility]. PT APPEARED TO SLEEP ON AND OFF THROUGH THE NIGHT. BED IS AT LOW POSITION, RAILS TIMES TWO, AND CALL LIGHT WITHIN REACH.
[2025-04-29 05:37] LABS: Anion Gap 12.0 mmol/L (3-11); Blood Urea Nitrogen 12.0 mg/dL (8-24); CO2, Blood 22.0 mmol/L (21-32); Calcium, Blood 8.2 mg/dL (8.5-10.1); Chloride, Blood 104.0 mmol/L (98-108); Creatinine, Blood 0.77 mg/dL (0.40-1.00); Glucose, Blood 134.0 mg/dL (70-99); Potassium, Blood 3.8 mmol/L (3.5-5.5); Sodium, Blood 134.0 mmol/L (136-145)
[2025-04-29 07:39] VITALS: BP 103/72
[2025-04-29] MEDS ORDERED: NS 1,000 ML IV ONE (09:00)
[2025-04-29] MEDS ORDERED: Vancomycin (Pharmacy Consult) IV SCH (09:00)
[2025-04-29] MEDS ORDERED: Enoxaparin 40 MG/0.4 ML SYR SC SCH (09:00)
[2025-04-29] MEDS ORDERED: CefTRIAXone Sodium 2,000 MG in NS 100 ML IV SCH (09:00)
[2025-04-29] MEDS ORDERED: CefTRIAXone Sodium 1,000 MG in NS 100 ML IV SCH (09:00)
--- NOTE | 2025-04-29 14:08 | NUR ---
SPOKE WITH DR NEVILLE REGARDING DIET ORDER. STATED HE WOULD PLACE ORDER, RN EXPRESSED POSSIBLE NEED FOR ALTERED TEXTURE, OKAYED FOR SOFT AND BITE SIZE, WILL UPGRADE IF APPROPRIATE.
--- NOTE | 2025-04-29 15:36 | NUR ---
SHIFT SUMMARY PATIENT IN BED THIS SHIFT, NO ATTEMPTS TO EXIT. ORIENTED TO SELF ONLY, CONTINUED BABBLING NONSENSICAL SPEECH. SEVERAL COMBATIVE EPISODES, HITTING STAFF, GRABBING ARMS, ATTEMPTING TO BITE. SEVERAL LOOSE BM, INCONTINENT. JANG IN PLACE, DRAINING FREELY TO GRAVITY. DOC CHANGED ABX REGIMEN, TOLERATED WELL SO FAR. NOT ABLE TO MAKE NEEDS KNOWN. CALL LIGHT IN REACH, BED ALARMED, IV TO L AC AND IV TO R HAND PATENT.
[2025-04-29 16:32] VITALS: BP 139/79
[2025-04-29 19:19] VITALS: BP 134/100
--- NOTE | 2025-04-30 06:27 | NUR ---
SHIFT SUMMARY PT IS ALERT AND ORIENTED TIMES SELF . PT ADMITTED FOR SEPSIS.. PT AT TIMES HAS VERBAL OUTBURSTS. PT CURRENTLY IS SOFT BITE SIZE. PT FOUND GRAM + COCCI WITH CLUSTERS. ABX CHANGED TO VANCO 1000MG/ 250ML Q 12 HOUR, ALONG WITH ROCEPHIN. PT IS RESIDENT OF [facility]. PT APPEARED TO SLEEP ON AND OFF THROUGH THE NIGHT. BED IS AT LOW POSITION, RAILS TIMES TWO, AND CALL LIGHT WITHIN REACH.
[2025-04-30 07:05] LABS: BASOPHILS ABSOLUTE AUTO 0.02 K/mm3 (0.00-0.23); BASOPHILS PERCENT AUTO 1 % (0-2); EOSINOPHILS ABSOLUTE AUTO 0.02 K/mm3 (0.00-0.68); EOSINOPHILS PERCENT AUTO 1 % (0-6); Hematocrit 37.1 % (33.0-51.0); Hemoglobin 12.2 g/dL (11.5-16.0); IMMATURE GRAN ABSOLUTE AUTO 0.02 K/mm3 (0.00-0.10); IMMATURE GRAN PERCENT AUTO 1 % (0-1); LYMPHOCYTES ABSOLUTE AUTO 0.87 K/mm3 (0.84-5.20); LYMPHOCYTES PERCENT AUTO 23 % (21-46); MONOCYTES ABSOLUTE AUTO 0.40 K/mm3 (0.16-1.47); MONOCYTES PERCENT AUTO 11 % (4-13); Mean Corpuscular HGB Conc 32.9 g/dL (31.5-36.5); Mean Corpuscular Volume 88 fL (80-100); NEUTROPHILS ABSOLUTE AUTO 2.44 K/mm3 (1.96-9.15); NEUTROPHILS PERCENT AUTO 65 % (41-73); NRBC ABSOLUTE 0.00 K/mm3 (0.00-0.02); NRBC Auto 0.0 /100 WBC (0.0-0.2); Platelet Count 196 K/mm3 (150-400); RDW Coefficient Variation 14.9 % (11.7-14.2); RDW Standard Deviation 48.2 fL (35.1-46.3)
[2025-04-30 07:25] LABS: Anion Gap 13.0 mmol/L (3-11); Blood Urea Nitrogen 14.0 mg/dL (8-24); CO2, Blood 20.0 mmol/L (21-32); Calcium, Blood 8.0 mg/dL (8.5-10.1); Chloride, Blood 108.0 mmol/L (98-108); Creatinine, Blood 0.78 mg/dL (0.40-1.00); Glucose, Blood 127.0 mg/dL (70-99); Potassium, Blood 3.5 mmol/L (3.5-5.5); Sodium, Blood 137.0 mmol/L (136-145)
[2025-04-30 07:27] VITALS: BP 143/102
[2025-04-30] MEDS ORDERED: NS 250 ML IV PRN (09:15)
[2025-04-30 15:34] VITALS: BP 134/100
[2025-04-30 21:00] VITALS: BP 154/97
--- NOTE | 2025-05-01 00:38 | NUR ---
Patient is resting in bed with her eyes open. Patient is not speaking in coherent statements but seems to be comfortable in bed and smiling. Pillows readjusted for comfort.
--- NOTE | 2025-05-01 03:49 | NUR ---
PATIENT IS RESTING COMFORTABLY IN BED. SHE IS AWAKE AND HAS NOT SLEPT MUCH TONIGHT. NO ISSUES CURRENTLY.
[2025-05-01 04:45] VITALS: BP 145/95
--- NOTE | 2025-05-01 05:32 | NUR ---
A&Ox1; SELF. PATIENT IS PLEASANT; DEMENTIA AT BASELINE. SHE DOES NOT COHERENTLY SPEAK BUT SEEMS TO ANSWER YES AND NO QUESTIONS APPROPRIATELY. PATIENT IS ON BEDREST. SHE HAS A IV IN HER RIGHT FOREARM. BREATHING EVEN AND UNLABORED ON RA. PATIENT IS INCONTIENT AND HAS A URINARY JANG IN PLACE. PATIENT TAKES HER MEDICATIONS WHOLE IN APPLESAUCE. SHE IS ON BITE SIZE DIET AND CAN FEEDINDEPENDENTLY BUT WILL MAKE A MESS. PATIENT IS AFIB BUT DOES NOT HAVE TELE.
[2025-05-01 06:52] LABS: BASOPHILS ABSOLUTE AUTO 0.02 K/mm3 (0.00-0.23); BASOPHILS PERCENT AUTO 0 % (0-2); EOSINOPHILS ABSOLUTE AUTO 0.10 K/mm3 (0.00-0.68); EOSINOPHILS PERCENT AUTO 2 % (0-6); Hematocrit 41.8 % (33.0-51.0); Hemoglobin 13.6 g/dL (11.5-16.0); IMMATURE GRAN ABSOLUTE AUTO 0.02 K/mm3 (0.00-0.10); IMMATURE GRAN PERCENT AUTO 0 % (0-1); LYMPHOCYTES ABSOLUTE AUTO 1.29 K/mm3 (0.84-5.20); LYMPHOCYTES PERCENT AUTO 22 % (21-46); MONOCYTES ABSOLUTE AUTO 0.48 K/mm3 (0.16-1.47); MONOCYTES PERCENT AUTO 8 % (4-13); Mean Corpuscular HGB Conc 32.5 g/dL (31.5-36.5); Mean Corpuscular Volume 90 fL (80-100); NEUTROPHILS ABSOLUTE AUTO 3.96 K/mm3 (1.96-9.15); NEUTROPHILS PERCENT AUTO 68 % (41-73); NRBC ABSOLUTE 0.00 K/mm3 (0.00-0.02); NRBC Auto 0.0 /100 WBC (0.0-0.2); Platelet Count 207 K/mm3 (150-400); RDW Coefficient Variation 14.9 % (11.7-14.2); RDW Standard Deviation 48.8 fL (35.1-46.3)
[2025-05-01 07:11] LABS: Anion Gap 11.0 mmol/L (3-11); Blood Urea Nitrogen 13.0 mg/dL (8-24); CO2, Blood 22.0 mmol/L (21-32); Calcium, Blood 8.2 mg/dL (8.5-10.1); Chloride, Blood 110.0 mmol/L (98-108); Creatinine, Blood 0.73 mg/dL (0.40-1.00); Glucose, Blood 136.0 mg/dL (70-99); Potassium, Blood 3.8 mmol/L (3.5-5.5); Sodium, Blood 139.0 mmol/L (136-145)
[2025-05-01 07:31] VITALS: BP 115/78
[2025-05-01] MEDS ORDERED: CefTRIAXone Sodium 1,000 MG in NS 100 ML IV SCH (09:00)
--- NOTE | 2025-05-01 11:53 | NUR ---
SHIFT/DISCHARGE SUMMARY: PATIENT REMAINS A+O X1. ABLE TO SAY NAME BUT NOTHING MORE WITHOUT RAMBLING. PATIENT PLEASANT AND COOPERATIVE WITH CARE. BECOMES AGGITATED WHEN ROLLING, REPOSITIONING. ROCEPHIN GIVEN THIS AM WITH GOOD PROGRESS. LUNGS DIMINISHED THROUGHOUT. S1, S2 HEARD ON ASCULTATION. JANG CATH DRAINING TO GRAVITY WITH CLEAR YELLOW URINARY OUTPUT. IV REMOVED PRIOR TO TRANSPORT. 3P TRANSFER INTO [facility] GB TO W/C WHEN D/C. REPORT GIVEN TO RN AT [facility]. PERSONAL BELONGINGS PROVIDED BACK TO PATIENT WHEN DISCHARGED.
[2025-05-01] MEDS ORDERED: SULTRIDS PO (13:30)
[2025-05-01] MEDS ORDERED: VISBIOME 112.51 EACH PO (13:32)
== END 2025-05-01 11:46 | disposition home or self-care (01) | DRG 871 ==
LOC: ER 10:37 → MEDS 10:38
PROVIDERS: Emergency Medicine; ADMIT Family Medicine
DX: A41.51 Sepsis due to Escherichia coli [E. coli] (principal); G93.41 Metabolic encephalopathy; E87.21 Acute metabolic acidosis; I48.20 Chronic atrial fibrillation, unspecified; N39.0 Urinary tract infection, site not specified; R65.20 Severe sepsis without septic shock; F03.90 Unspecified dementia, unspecified severity, without behavioral disturbance, psychotic disturbance, mood disturbance, and anxiety; Z66 Do not resuscitate; B96.20 Unspecified Escherichia coli [E. coli] as the cause of diseases classified elsewhere; N18.9 Chronic kidney disease, unspecified; I12.9 Hypertensive chronic kidney disease with stage 1 through stage 4 chronic kidney disease, or unspecified chronic kidney disease; Z88.8 Allergy status to other drugs, medicaments and biological substances; Z88.1 Allergy status to other antibiotic agents; Z87.891 Personal history of nicotine dependence
CPT/HCPCS: 36415; 51702; 80048; 80053; 81001; 83605; 85025; 87040; 87077; 87086; 87186; 96361; 96365-59; 96372; 96375; 96376; 99285-25; A9270; G0378; J0696; J1650; J3373; J7030; J7040; J7050; J7120

== ENCOUNTER 2025-07-17 08:28 | Emergency (ER) | payer OTHER ==
[~2025-07-17] VITALS: Ht 165.1 cm; Wt 81.7 kg
[~2025-07-17 08:28] MED LIST changes: +ACET500 PO; +OLAN10 PO; +QUETIAPINE FUMA50 M2 PO; +SENNA LAXATIVE8.6 MG PO; +SULTRIDS PO; +VISBIOME 112.51 EACH PO
[2025-07-17] MEDS ORDERED: MIRALAX1714 PO (08:57)
[2025-07-17] MEDS ORDERED: OLAN10A MM (08:59)
[2025-07-17 09:22] LABS: Alanine Aminotransfer (ALT/SGP 25.0 U/L (12-78); Albumin, Blood 3.6 g/dL (3.4-5.0); Albumin/Globulin Ratio 0.8 (0.8-1.8); Anion Gap 10.0 mmol/L (3-11); Aspartate Aminotrans (AST/SGOT 37.0 U/L (12-37); Bilirubin, Total 0.5 mg/dL (0.1-1.0); Blood Urea Nitrogen 14.0 mg/dL (8-24); CO2, Blood 23.0 mmol/L (21-32); Calcium, Blood 9.4 mg/dL (8.5-10.1); Chloride, Blood 109.0 mmol/L (98-108); Creatinine, Blood 0.91 mg/dL (0.40-1.00); Globulin, Blood 4.3 g/dL (2.2-4.0); Glucose, Blood 135.0 mg/dL (70-99); Potassium, Blood 5.1 mmol/L (3.5-5.5); Sodium, Blood 137.0 mmol/L (136-145); Total Protein, Blood 7.9 g/dL (6.4-8.2)
[2025-07-17 10:00] LABS: BASOPHILS ABSOLUTE AUTO 0.06 K/mm3 (0.00-0.23); BASOPHILS PERCENT AUTO 1 % (0-2); EOSINOPHILS ABSOLUTE AUTO 0.24 K/mm3 (0.00-0.68); EOSINOPHILS PERCENT AUTO 2 % (0-6); Hematocrit 41.3 % (33.0-51.0); Hemoglobin 13.1 g/dL (11.5-16.0); IMMATURE GRAN ABSOLUTE AUTO 0.04 K/mm3 (0.00-0.10); IMMATURE GRAN PERCENT AUTO 0 % (0-1); LYMPHOCYTES ABSOLUTE AUTO 1.42 K/mm3 (0.84-5.20); LYMPHOCYTES PERCENT AUTO 11 % (21-46); MONOCYTES ABSOLUTE AUTO 1.19 K/mm3 (0.16-1.47); MONOCYTES PERCENT AUTO 10 % (4-13); Mean Corpuscular HGB Conc 31.7 g/dL (31.5-36.5); Mean Corpuscular Volume 92 fL (80-100); NEUTROPHILS ABSOLUTE AUTO 9.56 K/mm3 (1.96-9.15); NEUTROPHILS PERCENT AUTO 76 % (41-73); NRBC ABSOLUTE 0.00 K/mm3 (0.00-0.02); NRBC Auto 0.0 /100 WBC (0.0-0.2); Platelet Count 312 K/mm3 (150-400); RDW Coefficient Variation 14.5 % (11.7-14.2); RDW Standard Deviation 48.7 fL (35.1-46.3)
[2025-07-17 10:49] VITALS: BP 155/76
== END 2025-07-17 11:23 | disposition home or self-care (01) ==
LOC: ER 08:28
PROVIDERS: Emergency Medicine
DX: R40.4 Transient alteration of awareness (principal); F03.90 Unspecified dementia, unspecified severity, without behavioral disturbance, psychotic disturbance, mood disturbance, and anxiety; I48.91 Unspecified atrial fibrillation; I12.9 Hypertensive chronic kidney disease with stage 1 through stage 4 chronic kidney disease, or unspecified chronic kidney disease; N18.9 Chronic kidney disease, unspecified; Z66 Do not resuscitate; Z87.891 Personal history of nicotine dependence; Z91.030 Bee allergy status; Z88.8 Allergy status to other drugs, medicaments and biological substances; Z88.1 Allergy status to other antibiotic agents; Z79.899 Other long term (current) drug therapy
CPT/HCPCS: 36415; 80053; 84484; 85025; 93005; 93010; 99285-25